=== PATIENT | male | born 1955 | race Caucasian/White ===

== ENCOUNTER 2023-06-19 05:23 | Emergency (ER) | payer MEDICARE, SELFPAY ==
--- NOTE | ~2023-06-19 | XR_ITS ---
EXAMINATION: XR knee RT 3V DATE: 06/19/2023 06:16 INDICATION: Right knee pain and swelling. TECHNIQUE: 3 views of right knee were obtained. COMPARISON: None. FINDINGS: Bone alignment is normal. No fracture. There is mild tricompartmental osteoarthritis. There is chondrocalcinosis of the menisci. There is a small knee joint effusion. IMPRESSION: 1. Mild right knee osteoarthritis. 2. Small right knee joint effusion. Reviewed, dictated and finalized at location E.
[2023-06-19 05:50] VITALS: BP 154/85; PULSE 80; RESP 15; TEMP 36.5; O2SAT 99
[2023-06-19 07:30] VITALS: BP 164/93; PULSE 83; RESP 18; O2SAT 96
[2023-06-19] MEDS: HYDROcodone/acetaminophen (*CRX) 5-325 MG TABLET 1 TAB PO (08:36)
[2023-06-19 08:37] VITALS: BP 153/87; PULSE 82; RESP 18; O2SAT 98
[2023-06-19 09:32] VITALS: BP 135/69; PULSE 73; RESP 18; O2SAT 98
--- NOTE | 2023-06-19 09:36 | ED.GENADULT ---
HPI - General Adult General Chief complaint: Extremity Injury, Lower Stated complaint: right knee pain Time Seen by Provider: 06/19/23 07:32 Related Data Allergies Allergy/AdvReac Type Severity Reaction Status Date / Time No Known Allergies Allergy Verified 06/19/23 07:19 Course Vital Signs Vital signs: Vital Signs Temperature 97.7 F 06/19/23 05:50 Pulse Rate 80 06/19/23 05:50 Respiratory Rate 15 06/19/23 05:50 Blood Pressure 154/85 H 06/19/23 05:50 Pulse Oximetry 99 06/19/23 05:50 Oxygen Delivery Room Air 06/19/23 05:50 Temperature 97.7 F 06/19/23 05:50 Pulse Rate 73 06/19/23 09:32 Respiratory Rate 18 06/19/23 09:32 Blood Pressure 135/69 06/19/23 09:32 Pulse Oximetry 98 06/19/23 09:32 Oxygen Delivery Room Air 06/19/23 05:50 Medical Decision Making Vital Signs Vital Signs: Vital Signs Temperature 97.7 F 06/19/23 05:50 Pulse Rate 80 06/19/23 05:50 Respiratory Rate 15 06/19/23 05:50 Blood Pressure 154/85 H 06/19/23 05:50 Pulse Oximetry 99 06/19/23 05:50 Oxygen Delivery Room Air 06/19/23 05:50 Temperature 97.7 F 06/19/23 05:50 Pulse Rate 73 06/19/23 09:32 Respiratory Rate 18 06/19/23 09:32 Blood Pressure 135/69 06/19/23 09:32 Pulse Oximetry 98 06/19/23 09:32 Oxygen Delivery Room Air 06/19/23 05:50 Discharge Plan Discharge Clinical Impression: Acute knee pain, Effusion of knee Patient Disposition: Home, Self-Care Condition: Stable Instructions: Osteoarthritis (ED), Swollen Knee Joint (ED) Additional Instructions: You have a painful swollen knee. Is felt to be related to overuse injury arthritis. Continue to rest, elevate the leg, and alternate between ice and heat. You can also wear compression sleeve. Take your home ibuprofen but you may also take some Tylenol with hydrocodone for breakthrough pain. You should return to the ER if your knee is red and hot, you have fever over 100.4 ?F, or you have additional concerns Prescriptions: New oxycodone-acetaminophen [Endocet] 5-325 mg tablet 1 tablet PO Q6H PRN (Reason: pain) Qty: 10 0RF Follow-up/Referrals: Иван,Rufino De La Paz MD [Primary Care Provider] - 1 Week Moshe Moses MD [Physician] - 1 Week
[2023-06-19 09:58] VITALS: BP 142/92; PULSE 73; RESP 18; O2SAT 98
== END 2023-06-19 10:00 | disposition home or self-care (01) ==
PROVIDERS: Emergency Provider Emergency Medicine; PCP Internal Medicine
DX: M25.561 Pain in right knee (principal); M25.461 Effusion, right knee
CPT/HCPCS: 73562; 99283; A9270

== ENCOUNTER 2025-01-09 10:12 | Emergency (ER) | payer MEDICARE, SELFPAY ==
--- NOTE | ~2025-01-09 | XR_ITS ---
XR knee RT 3V Ordering provider: Karen Nguyen APRN History: . pain and swelling post fall . Comparison: None. FINDINGS: BONES: No acute fracture or dislocation. JOINT SPACES: Normal. Chondrocalcinosis. SOFT TISSUES: Normal. IMPRESSION: No acute osseous abnormality right knee. Chondrocalcinosis. Reviewed, dictated and finalized at location A.
--- OUTSIDE RECORDS SUMMARY | 2025-01-09 10:16 | XMS_ITS | Encounter Summary ---
Author Organization [facility] Address [address] [facility] [place] [address] Care Team Providers Care Multimedia Project Manager Name Role Phone Rufino Oates MD Primary Care Provider [phone] Encounter Details Date Type Department Care Team (Late st Contact Info) Description 07/19/2021 Lab Requisition [facility] DermPath Lab [address] [place] [address] Ken Daniel MD [address] [facility] [place] [address] Social History Tobacco Use Types Packs/Day Years Used Date Smoking Tobacco: Never Assessed Sex and Gender Information Value Date Recorded Sex Assigned at Not on file Legal Sex Male 3:22 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 Gender Identity Not on file Sexual Orientation Not on file documented as of this encounter Plan of Treatment Not on file documented as of this encounter Procedures Procedure Name Priority Date/Time Associated Diagnosis Comments DERMATOPATHOLOGY Routine 07/18/2021 12:0 0 AM CIRCULAR SAWYER HELPER documented in this encounter Results * DERMATOPATHOLOGY (07/18/2021 12:00 AM CIRCULAR SAWYER HELPER) Case Report Dermatopathology Report Case: [id number] Authorizing Provider: Ken Daniel MD Collected: 07/18/2021 12:00 AM Ordering Location: [facility] DermPath Lab Received: 07/19/2021 06:29 AM Pathologist: Karuna Noguera MD Specimen: Skin, right chest 12:25 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 DERMATOPATHOLOGY LABORATORY Final Diagnosis Specimen A. SKIN, right chest: BASAL CELL CARCINOMA, NODULAR TYPE (C44.519) 12:25 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 DERMATOPATHOLOGY LABORATORY at 1225 CIRCULAR SAWYER HELPER Clinical History BCC vs SCC vs psoriasis. Path # [id number]. 12:25 PM [facility] DERMATOPATHOLOGY LABORATORY Gross Description Specimen A: Received is one formalin filled container labeled with the patient's name and designated right chest. The specimen consists of a shave biopsy measuring [id number]. Jar 0. 12:25 PM [facility] DERMATOPATHOLOGY LABORATORY Microscopic Description Specimen A. SKIN, right chest: Within the dermis there are aggregates of basaloid cells with a high nuclear to cytoplasmic ratio and peripheral palisading. 12:25 PM [facility] DERMATOPATHOLOGY LABORATORY Disclaimer An external and internal positive and negative controls are appropriate for the histochemical, immunohistochemical and immunofluorescence stain(s) in this case (if any), except where stated explicitly. The performance characteristics of the stain(s) cited in this report were developed and its performance characteristic determined by the Dermatopathology Laboratory at [facility], directed by Dr. Sujit Hill. These tests need not be, and therefore are not, approved by the [place] Food and Drug Administration. The tests are used for clinical purposes. Billing Codes Specimen Charges Stain Charges 62949 1 12:25 PM [facility] DERMATOPATHOLOGY LABORATORY Embedded Images 12:25 PM [facility] DERMATOPATHOLOGY LABORATORY Pathology/Cytolog y TISSUE SPECIMEN FROM SKIN / Unknown 07/18/2021 07/19/2021 6:29 AM CIRCULAR SAWYER HELPER us Ken Daniel MD LAB - PATHOLOGY/CYTOLOGY ORDER MINDY Final Result DERMATOPATHOLOGY LABORATORY [facility] - Department of Dermatology [address], [address] [phone] documented in this encounter Visit Diagnoses Not on filedocumented in this encounter Care Teams Multimedia Project Manager Relationship Specialty Start Date End Date Rufino Oates MD [address] [place] [address] [address] [place] [address] PCP - General 11/29/21 documented as of this encounter
--- OUTSIDE RECORDS SUMMARY | 2025-01-09 10:17 | XMS_ITS | Clinical Summary ---
Author Organization [facility] Address [address] [facility] [place] [address] Care Team Providers Care Warehouse Delivery Driver Name Role Phone Rufino Oates MD Primary Care Provider [phone] Allergies No known active allergies Medications quinapril (ACCUPRIL) 20 mg tablet Take 20 mg by mouth daily. Active rosuvastatin (CRESTOR) 20 mg tablet Take 20 mg by mouth daily at bedtime. Active escitalopram oxalate (LEXAPRO) 10 mg tablet Take 10 mg by mouth daily. Active amLODIPine (NORVASC) 10 mg tablet Take 10 mg by mouth daily. Active testosterone cypionate 200 mg/mL Kit Inject by intramuscular injection. 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 Family History Medical History Relation Name Comments Heart Disease Brother Heart Disease Father Diabetes Mother Heart Disease Mother Diabetes Sister Relation Name Status Comments Brother Father Mother Sister Alive Social History Tobacco Use Types Packs/Day Years Used Date Smoking Tobacco: Never Smokeless Tobacco: Never Alcohol Use Standard Drinks/Week Comments Yes 0 (1 standard drink = 0.6 oz pur e alcohol) Sex and Gender Information Value Date Recorded Sex Assigned at Not on file Legal Sex Male 8:55 AM 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 WORKER CLEANING MACHINERY Gender Identity Not on file Sexual Orientation Not on file Last Filed Vital Signs Vital Sign Reading Time Taken Comments Blood Pressure 141/93 10/23/2018 2:59 PM SANITATION WORKER CLEANING MACHINERY Pulse 78 10/23/2018 2:59 PM SANITATION WORKER CLEANING MACHINERY Temperature 36.7 C (98.1 F) 10/23/2018 2:59 PM SANITATION WORKER CLEANING MACHINERY Respiratory Rate - - Oxygen Saturation 96% 10/23/2018 2:59 PM SANITATION WORKER CLEANING MACHINERY Inhaled Oxygen Concentration - - Weight 85.3 kg (188 lb 1.6 oz) 10/23/2018 2:59 P M SANITATION WORKER CLEANING MACHINERY Height 175.3 cm (5' 9 ) 10/23/2018 2:59 PM SANITATION WORKER CLEANING MACHINERY Body Mass Index 27.78 10/23/2018 2:59 PM SANITATION WORKER CLEANING MACHINERY Plan of Treatment Health Maintenance Due Date Last Done Comments DTAP/TDAP/TD VACCINES (1 - Tdap) 1973 COLORECTAL SCREENING 1999 Colorectal Cancer Screening 1999 FIT-DNA Q 3 years 1999 FIT/FOBT Q 1 year 1999 Flex Sig/CT Colonography Q 5 years 1999 PNEUMOCOCCAL VACCINE 50+ YEARS (1 of 1 - PCV) 03/08/20 04 ZOSTER VACCINE (1 of 2) 2004 INFLUENZA VACCINE (#1) 2024 RSV VACCINE (60+ or ) (1 - 1-dose 75+ series) 2029 Insurance qualifyor/TRUE BLUE PPO Care Teams Warehouse Delivery Driver Relationship Specialty Start Date End Date Rufino Oates MD [facility] [address] [place] [address] PCP - General Internal Medicine 10/16/18
--- OUTSIDE RECORDS SUMMARY | 2025-01-09 10:17 | XMS_ITS | Clinical Summary ---
Author Organization [facility] [employer] Address [address] [place] [address] Care Team Providers Care Allergist Immunologist Name Role Phone Rufino Oates MD Primary Care Provider Source Comments [facility],non-owned Affiliates and Associated Physician Practices is amultiple site organization consisting of ambulatory clinics and hospital sitesin [place], [place], [place] and [place]. This disclosure is being madepursuant to the Care Everywhere program and may not contain all information available regarding this patient. 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 Gender Identity Not on file Sexual Orientation Not on file Plan of Treatment Health Maintenance Due Date Last Done Comments COLOGUARD (AGES 45-75) - COL ON CA SCREENING 1954 COLON MONITORING 1954 COLONOSCOPY - COLON CA SCREENING 1954 CT COLONOGRAPHY - COLON CA SCREENING 1954 Colorectal Cancer Screening 1954 FIT - COLON CA SCREENING 1954 FLEX SIG - COLON CA SCREENING 1954 LIPID TESTING 1954 HEPATITIS C SCREENING 03/03/1972 DTAP/TDAP/TD VACCINES (1 - Tdap) 1973 PNEUMOCOCCAL VACCINE 50+ (1 of 1 - PCV) 2004 ZOSTER VACCINE (1 of 2) 2004 COVID-19 VACCINE ( - 2023-2 5 season) 2024 DEPRESSION SCREENING 08/20/2024 INFLUENZA VACCINE (Season Ended) 2025 Respiratory Syncytial Virus (RSV) Vaccine Pt: or over 60 yrs (1 - 1-dose 75+ series) 2029 HEPATITIS B VACCINE Aged Out No longe r eligible based on patient's age to complete this topic HIB VACCINE Aged Out No longer eligi ble based on patient's age to complete this topic HPV VACCINE Aged Out No longer eligi ble based on patient's age to complete this topic MENINGOCOCCAL (Group B) VACC INE SHARED DECISION-MAKING Aged Out No longer eligibl e based on patient's age to complete this topic MENINGOCOCCAL GROUPS A/C/Y/W VACCINE Aged Out No longer eligible b ased on patient's age to complete this topic Insurance ANTH Care Teams Allergist Immunologist Relationship Specialty Start Date End Date Rufino Oates MD [address] [place] [address] [address] [place] [address] PCP - General 07/18/21
--- OUTSIDE RECORDS SUMMARY | 2025-01-09 10:17 | XMS_ITS | Clinical Summary ---
Author Organization [facility] Address [address] [place] [address] Care Team Providers Care Coloring Machine Operator Name Role Phone Unavailable Primary Care Provider Unavailabl e Immunizations Immunization Administration Dates Next Due Covid-19, Mrna, Lnp-s, PF, 1 00 mcg/0.5 mL Dose (Moderna) 06/24/2021 Social History Tobacco Use Types Packs/Day Years Used Date Smoking Tobacco: Never Assessed Sex and Gender Information Value Date Recorded Sex Assigned at Not on file Legal Sex Male 10:56 AM CDT Gender Identity Not on file Sexual Orientation Not on file Plan of Treatment Health Maintenance Due Date Last Done Comments Hepatitis C Virus (HCV) Screening 1954 TdaP Immunization 1954 Colonoscopy 1999 Colorectal Cancer Screening 1999 Cologuard 2004 Immunochemical Fecal Occult Blood 2004 Pneumococcal Immunization (5 0+ years) (1 of 1 - PCV) 2004 Zoster Immunization (1 of 2) 2004 PSA Discussion 2009 Influenza Immunization (#1) 2024 SARS-COV-2 Immunization (2 - season) 2024 06/24/2021 Respiratory Syncytial Virus (RSV) Immunization (Adult) (1 - 1-dose 75+ series) 2029 Hepatitis B Immunization Aged Out No longer eligible based on patient's age to complete this topic Meningococcal Immunization (ACWY) Aged Out No longer eligible based on patient's age to complete this topic Rotavirus Immunization Aged Out No lo nger eligible based on patient's age to complete this topic
--- OUTSIDE RECORDS SUMMARY | 2025-01-09 10:17 | XMS_ITS | Encounter Summary ---
Author Organization [facility] Address [address] [facility] [place] [address] Care Team Providers Care Export Documents Clerk Name Role Phone Rufino Oates MD Primary Care Provider [phone] Encounter Details Date Type Department Care Team (Late st Contact Info) Description 09/07/2021 Lab Requisition [facility] DermPath Lab [address] [facility] [place] [address] Ken Daniel MD [address] [facility] [place] [address] Social History Tobacco Use Types Packs/Day Years Used Date Smoking Tobacco: Never Assessed Sex and Gender Information Value Date Recorded Sex Assigned at Not on file Legal Sex Male 3:22 PM DEPARTMENT SALES MANAGER Gender Identity Not on file Sexual Orientation Not on file documented as of this encounter Plan of Treatment Not on file documented as of this encounter Procedures Procedure Name Priority Date/Time Associated Diagnosis Comments DERMATOPATHOLOGY Routine 09/07/2021 12:0 0 AM DEPARTMENT SALES MANAGER documented in this encounter Results * DERMATOPATHOLOGY (09/07/2021 12:00 AM DEPARTMENT SALES MANAGER) Case Report Dermatopathology Report Case: [id number] Authorizing Provider: Ken Daniel MD Collected: 09/07/2021 12:00 AM Ordering Location: [facility]erm[facility] Lab Received: 09/07/2021 04:18 PM Pathologist: Karuna Noguera MD Specimen: Skin, right chest 11:28 AM DEPARTMENT SALES MANAGER DERMATOPATHOLOGY LABORATORY Final Diagnosis Specimen A. SKIN, right chest: BASAL CELL CARCINOMA (C44.519) NOT PRESENT AT MARGIN DERMAL SCAR (L90.5) 2 11:28 AM [facility] DERMATOPATHOLOGY LABORATORY at 1128 DEPARTMENT SALES MANAGER Clinical History BX Proven. BCCA NOD. Please Check Margins. Path# [id number] 2 11:28 AM [facility] DERMATOPATHOLOGY LABORATORY Gross Description Specimen A: Received is one formalin filled container labeled with the patient's name and designated right chest. The specimen consists of a non-oriented ellipse of skin measuring [id number]. The epidermal surface is unremarkable. The margin is inked green. The 12 o'clock and 6 o'clock tips are submitted in cassette 1. The remainder of the ellipse is serially sectioned and submitted in cassette 2-3. Jar 0. 2 11:28 AM [facility] DERMATOPATHOLOGY LABORATORY Microscopic Description Specimen A. SKIN, right chest: Within the dermis there are aggregates of basaloid cells with a high nuclear to cytoplasmic ratio and peripheral palisading. This lesion is not present at the margin of the specimen. There are fibroblasts and collagen bundles oriented parallel to the skin surface with elongated blood vessels, some of which are oriented perpendicular to the skin surface. 2 11:28 AM [facility] DERMATOPATHOLOGY LABORATORY Disclaimer An external and internal positive and negative controls are appropriate for the histochemical, immunohistochemical and immunofluorescence stain(s) in this case (if any), except where stated explicitly. The performance characteristics of the stain(s) cited in this report were developed and its performance characteristic determined by the Dermatopathology Laboratory at [facility], directed by Dr. Sujit Hill. These tests need not be, and therefore are not, approved by the [place] Food and Drug Administration. The tests are used for clinical purposes. Billing Codes Specimen Charges Stain Charges 83147 1 2 11:28 AM [facility] DERMATOPATHOLOGY LABORATORY Embedded Images 2 11:28 AM [facility] DERMATOPATHOLOGY LABORATORY Pathology/Cytolog y TISSUE SPECIMEN FROM SKIN / Unknown 09/07/2021 09/07/2021 4:18 PM DEPARTMENT SALES MANAGER us Ken Daniel MD LAB - PATHOLOGY/CYTOLOGY ORDER MINDY Final Result DERMATOPATHOLOGY LABORATORY [facility] - Department of Dermatology [facility] [address] [place] [address], [address] [phone] documented in this encounter Visit Diagnoses Not on filedocumented in this encounter Care Teams Export Documents Clerk Relationship Specialty Start Date End Date Rufino Oates MD [facility] [address] [place] [id number] PCP - General 07/18/21 documented as of this encounter
--- OUTSIDE RECORDS SUMMARY | 2025-01-09 10:17 | XMS_ITS | Data Portability ---
Author Organization [place] [facility], Main Office Address [address] [place] [address] Assessment No assessment recorded. Plan of Treatment Reminders Order Date Submit Date Provider Last Modified By Organization Details Last Modified Time Details Appointments None recorded. Lab HbA1c (hemoglob in A1c), blood 025 025 [facility], [address], [place], [address], 5 17:41:14 lipid panel, serum 025 025 [email or web address] [facility], [address], [place], [address], 5 17:41:13 CMP, serum or plasma 025 025 [id number] [facility], [address], [place], [address], 5 17:41:14 vitamin B12 + folate, serum or blood 025 025 [email or web address] [facility], [address], [place], [address], 5 17:41:14 lipid panel, serum 024 024 [facility], [address], [place], [address], 4 09:40:58 CMP, serum or plasma 024 024 [id number] [facility], [address], [place], [address], 4 09:40:58 TSH, serum or plasma 024 024 [id number] [facility], [address] , [place], [address], 4 09:40:59 T4, free, serum 024 024 [facility], [address], [place], [address], 4 09:40:59 HbA1c (hemoglob in A1c), blood 024 024 [email or web address] [facility], [address] , [place], [address], 4 09:40:59 microalbu min/creat inine, mass ratio, urine 024 024 [id number] [facility], [address] , [place], [address], 4 09:40:59 CBC w/ auto diff 024 024 [facility], [address] , [place], [address], 4 09:40:59 PSA, serum or plasma 024 024 [facility], [address] , [place], [address], 4 09:40:59 lipid panel, serum 023 023 DICK [facility], [address] , [place], [address], 3 02:09:56 CMP, serum or plasma 023 023 DICK [facility], [address] , [place], [address], 3 02:09:58 testoster one, free + total, serum 023 023 [facility], [address], [place], [address], 3 02:09:57 Referral None recorded. Procedures None recorded. Surgeries None recorded. Imaging None recorded. Medication Orders Proscar 5 mg tablet 024 024 [email or web address] [facility], [facility], [place], [address], 5 11:21:20 Patient TargetsNo targets recorded. Patient Instructions Encounter Date Encounter Id Patient Instructions Last Modified By Organization Details Last Modified Time 04/04/2023 [id number] Follow-up hypertension-hyperli pidemia - type 2 diabetes -testicular hypofunction all clinically stable. Has had recent blood work performed cholesterol was 168 HDL 57 LDL was 78. PSA was fine at 0.18. Hemoglobin A1c 6.1. Overall is doing well. Will continue on current Rx will check a lipid, CMP and testosterone level. Continue on current Rx and follow-up in six months Not available 04/04/2023 15:01:30 11/01/2023 [id number] Hypertension, hyperlipidemia, type 2 diabetes, pseudogout, GERD and BPH. Check blood work consisting of CBC, CMP, lipid, thyroid, PSA. Continue on current Rx follow-up in six months.. Portions of the record may have been created with voice recognition software. Occasional wrong-word or s ound-a-like substitutions may have occurred due to the inherent limitations of voice recognition software. Read the chart carefully and recognize, using context, where substitutions have occurred. [email or web address] Not available 11/01/2023 12:18:38 05/01/2024 [id number] dementia rating scale-2* [email or web address] Not available 05/01/2024 17:50:09 alcohol misuse* [email or web address] Not available 05/01/2024 17:50:10 depression screening* [email or web address] Not available 05/01/2024 17:50:10 multi-dimensiona l health assessment questionnaire* [email or web address] Not available 05/01/2024 17:50:10 Personalized a lt Plan and Screening Recommendations Advance Directives - Do you have one? Yes Advance Directives - Do we have your advance directive on file in your health record? No, please bring in a copy at your earliest convenience Primary Prevention/Intervent ion (prevents or decreases the chance of common diseases from occurring) Smoking Risk: Non Smoker Alcohol Misuse Screening: Negative Weight: Appropriate [place] ht continue your current weight loss efforts try to lose 5% of your body weight try to lose 10% of your body weight Physical activity: Need more exercise/physical activity Nutrition: Good Average Fall Risk (screened today): Low Vaccines Pneumococcal: Influenza: Your next one in the fall of this year Chronic Disease Risks Stroke: Low Risk Intermediate Risk I have no recommendations Acti ve diagnosis, Continue current treatment plan Heart Attack: Low risk Intermediate Risk I have no recommendations Acti ve diagnosis, Continue current treatment plan Clogging of the Arteries: Low risk Intermediate Risk I have no recommendations Acti ve diagnosis, Continue current treatment plan Diabetes: Low Risk Intermediate Risk Active diagnosis, Continue current treatment plan Secondary Prevention/Intervent ion (detects treatable diseases before they may cause symptoms, disability, or ) Prostate Cancer Screening: Colon Cancer Screening: Colonoscopy Date Screening Last Performed: _2017 Eye Disease Screening: Dementia Risk: Low I have no recommendations Depression Screening: Negative Active diagnosis, Continue current treatment plan Not available 05/01/2024 12:18:25 Medicare risk evaluation overall doing fine. Follow up for HTN,Cholesterol, DM, BPH and low T. Will continue on current Rx. Check blood work and follow up in six months Next Appointment: 6 Months Approximate Date: 08/29/2024 Portions of the record may have been created with voice recognition software. Occasional wrong-word or s ound-a-like substitutions may have occurred due to the inherent limitations of voice recognition software. Read the chart carefully and recognize, using context, where substitutions have occurred. [email or web address] Not available 05/01/2024 17:49:48 12/02/2024 [id number] Follow-up for hypertension, hyperlipidemia, type 2 diabetes, psoriasis as well as thrombocytopenic disorder. Will check a hemoglobin A1c. , lipid, CBC and B12 level. Continue on current Rx. May consider giving some B12 injections to see if there is any improvement in his values. Follow Up: 6 Months Approximate Date: 05/31/2025 Portions of record are template driven. When necessary additional context will be provided. Additionally some portions have been created with voice recognition software. Occasional wrong-word or s ound-a-like substitutions may have occurred due to the inherent limitations of voice recognition software. Read the chart carefully and recognize, using context, where substitutions may have occurred. Created: Rufino Oates M.D. 12.02.2024 10:37 AM [email or web address] Not available 12/02/2024 11:37:43 Reason for Referral None Reported. Results Created Date Observation Date Name Description Value Unit Range Abnormal Flag Note LastModifiedBy Organization Detail LastModifiedTime 04/25/2004/30/2023 LIPID PANEL , STAND GWEN cholesterol, total 179 mg/dL <200 normal Not Available [facility] [address], [address], 04/30/2023 02:09:56 04/25/2004/30/2023 LIPID PANEL , STAND GWEN HDL cholesterol 59 mg/dL > or = 40 normal Not Available [facility] [address] [address] [place], [address], 04/30/2023 02:09:56 04/25/2004/30/2023 LIPID PANEL , STAND GWEN triglyceride s 201 mg/dL <150 high If a non-f astin g speci men was colle cted, consi denisha repea t trigl yceri de testi ng on a fasti ng speci men if clini arsenio indic ated. Hill merrill et al. J. of Clin. Lipid ol. 2015; 9:129 -169. Not Available [facility] [address] [place], [address], 04/30/2023 02:09:56 04/25/2004/30/2023 LIPID PANEL , STAND GWEN LDL-choleste rol 90 mg/dL _(michell c) normal Refer ence range : <100 Denise able range <100 mg/dL for prima ry preve ntion ; <70 mg/dL for patie nts with CHD or diabe tic patie nts with > or = 2 CHD risk facto rs. LDL-C is now calcu lated using the Teri n-Hop kins millau kobijerson n, which is a valid ated novel chelsey peace than the Fried cori rayne ion in the estim ation of LDL-C . Teri restrepo SS et al. TAVIA. 2013; 310(1 9): 2061- 2068 (http ://ed ucati on.Qu jadielLiveLeaf. com/f aq/FA Q164) Not Available [address] [address] [place], [address], 04/30/2023 02:09:56 04/25/2004/30/2023 LIPID PANEL , STAND GWEN chol/HDLC ratio 3.0 (calc ) <5.0 normal Not Available [address], [address], 04/30/2023 02:09:56 04/25/2004/30/2023 LIPID PANEL , STAND GWEN non HDL cholesterol 120 mg/dL _(michell c) <130 normal For patie nts with diabe alysa plus 1 major ASCVD risk facto r, treat ing to a non-H DL-C goal of <100 mg/dL (LDL- C of <70 mg/dL ) is consi rodrigod a ivan alcala optio n. Not Available [address], [address], 04/30/2023 02:09:56 04/25/2004/30/2023 TESTO STERO NE, FREE, BIOAV AILAB LE AND TOTAL , MS albumin 4.9 g/dL 3.6-5. 1 Not Available [address] [address] [place], [address], 04/30/2023 02:09:57 04/25/2004/30/2023 TESTO STERO NE, FREE, BIOAV AILAB LE AND TOTAL , MS sex hormone binding globulin 22.0 nmol/ L 22-77 Not Available [address] [place], [address], 04/30/2023 02:09:57 04/25/2004/30/2023 TESTO STERO NE, FREE, BIOAV AILAB LE AND TOTAL , MS testosterone , free 42.5 pg/mL 46.0-2 24.0 low Not Available [address] [address] [place], [address], 04/30/2023 02:09:57 04/25/2004/30/2023 TESTO STERO NE, FREE, BIOAV AILAB LE AND TOTAL , MS testosterone ,bioavailabl e 94.9 NG/dL 110.0- 575.0 low Not Available [facility] [address] [place], [address], 04/30/2023 02:09:57 04/25/2004/30/2023 TESTO STERO NE, FREE, BIOAV AILAB LE AND TOTAL , MS testosterone , total, MS 258 NG/dL 250-11 00 Men with clini arsenio signi fican t hypog onada l sympt oms and testo stero ne value s repea tedly in the range of the 200-3 00 ng/dL or less, may benef it from testo stero ne treat ment after adequ ate risk and benef its couns eling . For addit ional infor jia daugherty e refer to https ://ed ucati on.qu lani medinadigedu. com/f aq/FA Q165 (This link is being provi ded for infor efren nal/e ducat ional purpo ses only. ) (Note ) This test was devel oped and its keon tical perfo rmanc e hien cteri stics have been deter mined by [employer] [employer]. It has not been clear ed or appro ishan by the FDA. This assay has been valid ated pursu ant to the CLIA regul ation s and is used for clini michell purpo ses. MDF med fusio n [address] [facility] [address] [facility] [address] [phone] Osito clark MD Not Available [address] [place], [address], 04/30/2023 02:09:57 04/25/20 23 04/30/2023 COMPR EHENS VIN METAB OLIC PANEL glucose 149 mg/dL 65-99 high => [facility] ED: Chung e in test resul t(s) Fasti ng refer ence inter marisol For someo ne witho ut known diabe alysa, a gluco se value >125 mg/dL indic ates that they may have diabe alysa and this shoul d be confi rmed with a follo w-up test. PLEAS E DISRE SELENA PREVI OUSLY REPOR VIKAS INFOR MATIO N BELOW : (The infor matio n below was origi vincent repor vikas on 04/27 at 1:23 PM) GLUCO SE TNP/3 17 TEST NOT PERFO RMED Dupli caleb test. Not Available [address] [address] [place], [address], 04/30/2023 02:09:58 04/25/20 23 04/30/2023 COMPR EHENS VIN METAB OLIC PANEL urea nitrogen (BUN) 24 mg/dL 7-25 normal => [facility]H ED: Chung e in test resul t(s) Not Available [address], [address], 04/30/2023 02:09:58 04/25/20 23 04/30/2023 COMPR EHENS VIN METAB OLIC PANEL creatinine 0.89 mg/dL 0.70-1 .35 normal => [facility]H ED: Chung e in test resul t(s) Not Available [address], [address], 04/30/2023 02:09:58 04/25/20 23 04/30/2023 COMPR EHENS VIN METAB OLIC PANEL eGFR 93 mL/mi n/1.7 3m2 > or = 60 normal => ISH ED: Chung e in test resul t(s) Not Available [address] [address] [place], [address], 04/30/2023 02:09:58 04/25/2004/30/2023 COMPR EHENS VIN METAB OLIC PANEL BUN/creatini ne ratio SEE NOTE: (calc ) 6-22 => ISH ED: Chung e in test resul t(s) Not Repor vikas: BUN and Creat inine are withi n refer ence range . Not Available [address], [address], 04/30/2023 02:09:58 04/25/2004/30/2023 COMPR EHENS VIN METAB OLIC PANEL sodium 140 mmol/ L 135-14 6 normal => ISH ED: Chung e in test resul t(s) Not Available [address], [address], 04/30/2023 02:09:58 04/25/20 23 04/30/2023 COMPR EHENS VIN METAB OLIC PANEL potassium 4.3 mmol/ L 3.5-5. 3 normal Not Available [address], [address], 04/30/2023 02:09:58 04/25/20 23 04/30/2023 COMPR EHENS VIN METAB OLIC PANEL chloride 104 mmol/ L 98-110 normal => ISH ED: Chung e in test resul t(s) Not Available [address] [address] [place], [address], 04/30/2023 02:09:58 04/25/20 23 04/30/2023 COMPR EHENS VIN METAB OLIC PANEL carbon dioxide 22 mmol/ L 20-32 normal => ISH ED: Chung e in test resul t(s) Not Available [address] [address] [place], [address], 04/30/2023 02:09:58 04/25/20 23 04/30/2023 COMPR EHENS VIN METAB OLIC PANEL calcium 9.9 mg/dL 8.6-10 .3 normal => ISH ED: Chung e in test resul t(s) Not Available [address], [address], 04/30/2023 02:09:58 04/25/2004/30/2023 COMPR EHENS VIN METAB OLIC PANEL protein, total 7.3 g/dL 6.1-8. 1 normal Not Available [address], [address], 04/30/2023 02:09:58 04/25/2004/30/2023 COMPR EHENS VIN METAB OLIC PANEL albumin 5.0 g/dL 3.6-5. 1 normal => ISH ED: Chung e in test resul t(s) Not Available [address], [address], 04/30/2023 02:09:58 04/25/20 23 04/30/2023 COMPR EHENS VIN METAB OLIC PANEL globulin 2.3 g/dL_ (calc ) 1.9-3. 7 normal Not Available [address], [address], 04/30/2023 02:09:58 04/25/2004/30/2023 COMPR EHENS VIN METAB OLIC PANEL albumin/glob ulin ratio 2.2 (calc ) 1.0-2. 5 normal Not Available [address], [address], 04/30/2023 02:09:58 04/25/2004/30/2023 COMPR EHENS VIN METAB OLIC PANEL bilirubin, total 0.3 mg/dL 0.2-1. 2 normal => ISH ED: Chung e in test resul t(s) Not Available [address], [address], 04/30/2023 02:09:58 04/25/20 23 04/30/2023 COMPR EHENS VIN METAB OLIC PANEL alkaline phosphatase 74 U/L 35-144 normal => ISH ED: Chung e in test resul t(s) Not Available [address], [address], 04/30/2023 02:09:58 04/25/20 23 04/30/2023 COMPR EHENS VIN METAB OLIC PANEL AST 28 U/L 10-35 normal => ISH ED: Chung e in test resul t(s) Not Available [address], [address], 04/30/2023 02:09:58 04/25/20 23 04/30/2023 COMPR EHENS VIN METAB OLIC PANEL ALT 33 U/L 9-46 normal => ISH ED: Chung e in test resul t(s) Not Available [address], [address], 04/30/2023 02:09:58 12/04/19 24 12/09/2023 LIPID PANEL , STAND GWEN cholesterol, total 174 mg/dL <200 normal Not Available [address], [address], 12/09/2023 09:21:36 12/04/19 24 12/09/2023 LIPID PANEL , STAND GWEN HDL cholesterol 51 mg/dL > or = 40 normal Not Available [address], [address], 12/09/2023 09:21:36 12/04/19 24 12/09/2023 LIPID PANEL , STAND GWEN triglyceride s 289 mg/dL <150 high If a non-f astin g speci men was colle cted, consi denisha repea t trigl yceri de testi ng on a fasti ng speci men if clini arsenio indic ated. Hill merrill et al. J. of Clin. Lipid ol. 2015; 9:129 -169. Not Available [facility] [address] [place], [address], 12/09/2023 09:21:36 12/04/19 24 12/09/2023 LIPID PANEL , STAND GWEN LDL-choleste rol 85 mg/dL _(michell c) normal Refer ence range : <100 Denise able range <100 mg/dL for prima ry preve ntion ; <70 mg/dL for patie nts with CHD or diabe tic patie nts with > or = 2 CHD risk facto rs. LDL-C is now calcu lated using the Teri n-Hop kins millau catalino n, which is a valid ated novel chelsey marshall r accur acy than the Fried cori equat ion in the estim ation of LDL-C . Teri restrepo SS et al. TAVIA. 2013; 310(1 9): 2061- 2068 (http ://ed ucati on.Qu jadielLiveLeaf. com/f aq/FA Q164) Not Available [facility] [address], [place], [address], 12/09/2023 09:21:36 12/04/19 24 12/09/2023 LIPID PANEL , STAND GWEN chol/HDLC ratio 3.4 (calc ) <5.0 normal Not Available [facility] [address], [place], [address], 12/09/2023 09:21:36 12/04/19 24 12/09/2023 LIPID PANEL , STAND GWEN non HDL cholesterol 123 mg/dL _(michell c) <130 normal For patie nts with diabe alysa plus 1 major ASCVD risk facto r, treat ing to a non-H DL-C goal of <100 mg/dL (LDL- C of <70 mg/dL ) is consi rodrigod a thera peutdebbie c optio n. Not Available [facility] [address] [address], [place], [address], 12/09/2023 09:21:36 12/04/19 24 12/09/2023 ALBUM IN, RANDO M URINE W/CRE ATINI NE creatinine, random urine 158 mg/dL 20-320 normal Not Available [address] [address] [place], [address], 12/09/2023 09:21:37 12/04/19 24 12/09/2023 ALBUM IN, RANDO M URINE W/CRE ATINI NE albumin, urine 4.2 mg/dL see note: normal Refer ence Range : Refer ence Range Not estab lishe d Not Available [address] [address] , [place], [address], 12/09/2023 09:21:37 12/04/19 24 12/09/2023 ALBUM IN, RANDO M URINE W/CRE ATINI NE albumin/crea tinine ratio, random urine 27 mg/g_ creat <30 normal The ADA defin es abnor malit ies in album in excre tion as follo ws: Album inuri a Categ ory Resul t (mg/g creat inine ) Gina l to Mildl y incre ased <30 Moder ately incre ased 30-29 9 Sever osvaldo incre ased > OR = 300 The ADA recom mends that at least two of three speci mens colle cted withi n a 3-6 month perio d be abnor mal befor e consi morgan g a patie nt to be withi n a diagn ostic categ ory. Not Available [facility] [address] , [place], [address], 12/09/2023 09:21:37 12/04/19 24 12/09/2023 COMPR EHENS VIN METAB OLIC PANEL , PLASM A glucose 194 mg/dL 65-99 high Fasti ng refer ence inter marisol For someo ne witho ut known diabe alysa, a gluco se value >125 mg/dL indic ates that they may have diabe alysa and this shoul d be confi rmed with a follo w-up test. Not Available [address], [address], 12/09/2023 09:21:38 12/04/19 24 12/09/2023 COMPR EHENS VIN METAB OLIC PANEL , PLASM A urea nitrogen (BUN) 21 mg/dL 7-25 normal Not Available [address], [address], 12/09/2023 09:21:38 12/04/19 24 12/09/2023 COMPR EHENS VIN METAB OLIC PANEL , PLASM A creatinine 0.77 mg/dL 0.70-1 .35 normal Not Available [address], [address], 12/09/2023 09:21:38 12/04/19 24 12/09/2023 COMPR EHENS VIN METAB OLIC PANEL , PLASM A eGFR 97 mL/mi n/1.7 3m2 > or = 60 normal Not Available [address], [address], 12/09/2023 09:21:38 12/04/19 24 12/09/2023 COMPR EHENS VIN METAB OLIC PANEL , PLASM A BUN/creatini ne ratio SEE NOTE: (calc ) 6-22 Not Repor vikas: BUN and Creat inine are withi n refer ence range . Not Available [address], [address], 12/09/2023 09:21:38 12/04/19 24 12/09/2023 COMPR EHENS VIN METAB OLIC PANEL , PLASM A sodium 143 mmol/ L 135-14 6 normal Not Available [address], [address], 12/09/2023 09:21:38 12/04/19 24 12/09/2023 COMPR EHENS VIN METAB OLIC PANEL , PLASM A potassium 4.0 mmol/ L 3.4-4. 8 normal Not Available [address], [address], 12/09/2023 09:21:38 12/04/19 24 12/09/2023 COMPR EHENS VIN METAB OLIC PANEL , PLASM A chloride 106 mmol/ L 98-110 normal Not Available [address], [address], 12/09/2023 09:21:38 12/04/19 24 12/09/2023 COMPR EHENS VIN METAB OLIC PANEL , PLASM A carbon dioxide 21 mmol/ L 20-32 normal Not Available [address], [address], 12/09/2023 09:21:38 12/04/19 24 12/09/2023 COMPR EHENS VIN METAB OLIC PANEL , PLASM A calcium 9.8 mg/dL 8.6-10 .3 normal Not Available [address], [address], 12/09/2023 09:21:38 12/04/19 24 12/09/2023 COMPR EHENS VIN METAB OLIC PANEL , PLASM A protein, total 6.7 g/dL 6.4-8. 4 normal Not Available [address], [address], 12/09/2023 09:21:38 12/04/19 24 12/09/2023 COMPR EHENS VIN METAB OLIC PANEL , PLASM A albumin 4.5 g/dL 3.6-5. 1 normal Not Available [address], [address], 12/09/2023 09:21:38 12/04/19 24 12/09/2023 COMPR EHENS VIN METAB OLIC PANEL , PLASM A globulin 2.2 g/dL_ (calc ) 2.2-4. 0 normal Not Available [address], [address], 12/09/2023 09:21:38 12/04/19 24 12/09/2023 COMPR EHENS VIN METAB OLIC PANEL , PLASM A albumin/glob ulin ratio 2.0 (calc ) 0.9-2. 3 normal Not Available [address], [address], 12/09/2023 09:21:38 12/04/19 24 12/09/2023 COMPR EHENS VIN METAB OLIC PANEL , PLASM A bilirubin, total 0.3 mg/dL 0.2-1. 2 normal Not Available [address], [address], 12/09/2023 09:21:38 12/04/19 24 12/09/2023 COMPR EHENS VIN METAB OLIC PANEL , PLASM A alkaline phosphatase 67 U/L 35-144 normal Not Available [facility] [employer] [address], [address], 12/09/2023 09:21:38 12/04/19 24 12/09/2023 COMPR EHENS VIN METAB OLIC PANEL , PLASM A AST 38 U/L 10-35 high Not Available [address], [address], 12/09/2023 09:21:38 12/04/19 24 12/09/2023 COMPR EHENS VIN METAB OLIC PANEL , PLASM A ALT 46 U/L 9-46 normal Not Available [address], [address], 12/09/2023 09:21:38 12/04/19 24 12/09/2023 PSA, POST- PROST ATECT ALEXANDRO PSA, icma 0.23 NG/mL REFER ENCE RANGE S for PSA: LESS THAN 0.10 ng/mL AFTER RADIC AL PROST ATECT ALEXANDRO. 4.0 ng/mL OR LESS IN HEALT HY MALES WITHO UT PROST ATECT ALEXANDRO. PSA value s obtai jeni with diffe rent assay metho ds or kits canno t be used inter [facility] . This test was perfo rmed using the Beck an Coult er DxI metho d. PSA, ICMA is not to be used as a diagn ostic proce dure witho ut confi rmati on of the diagn osis by anoth er estab lishe d produ ct or proce dure. The lower limit of accur ate quant ifica tion for this assay is 0.02 ng/mL . PSA value s less than 0.02 ng/mL canno t be accur ately measu red and will be repor vikas as less than 0.02 ng/mL . Speci mens with PSA level s below the lower limit of accur ate quant ifica tion shoul d be consi dered as negat vin. In patie nts with a negat vin resul t for post prost atect alexandro PSA, seria l monit oring of PSA level s at regul ar inter vals, along with physi michell exami natio ns and other tests , may help to detec t recur rent prost ate cance r. Not Available [facility] [address] [address] [place], [address], 12/09/2023 09:21:39 12/04/19 24 12/09/2023 CBC (INCL UDES DIFF/ PLT) white blood cell count 4.0 thous and/u L 3.8-10 .8 normal Not Available [facility] [address] [place], [address], 12/09/2023 09:21:40 12/04/19 24 12/09/2023 CBC (INCL UDES DIFF/ PLT) red blood cell count 4.03 marta on/uL 4.20-5 .80 low Not Available [facility] [address], [address], 12/09/2023 09:21:40 12/04/19 24 12/09/2023 CBC (INCL UDES DIFF/ PLT) hemoglobin 12.7 g/dL 13.2-1 7.1 low Not Available [facility] - [address], [address], 12/09/2023 09:21:40 12/04/19 24 12/09/2023 CBC (INCL UDES DIFF/ PLT) hematocrit 37.7 % 38.5-5 0.0 low Not Available [facility] [address], [address], 12/09/2023 09:21:40 12/04/19 24 12/09/2023 CBC (INCL UDES DIFF/ PLT) MCV 93.5 fL 80.0-1 00.0 normal Not Available [facility] [address], [address], 12/09/2023 09:21:40 12/04/19 24 12/09/2023 CBC (INCL UDES DIFF/ PLT) MCH 31.5 pg 27.0-3 3.0 normal Not Available [facility] [address], [address], 12/09/2023 09:21:40 12/04/19 24 12/09/2023 CBC (INCL UDES DIFF/ PLT) MCHC 33.7 g/dL 32.0-3 6.0 normal Not Available [facility] [address], [address], 12/09/2023 09:21:40 12/04/19 24 12/09/2023 CBC (INCL UDES DIFF/ PLT) RDW 13.3 % 11.0-1 5.0 normal Not Available [facility] [address], [address], 12/09/2023 09:21:40 12/04/19 24 12/09/2023 CBC (INCL UDES DIFF/ PLT) platelet count 73 thous and/u L 140-40 0 low Not Available [facility] [address], [address], 12/09/2023 09:21:40 12/04/19 24 12/09/2023 CBC (INCL UDES DIFF/ PLT) MPV 12.6 fL 7.5-12 .5 high Not Available [address], [address], 12/09/2023 09:21:40 12/04/19 24 12/09/2023 CBC (INCL UDES DIFF/ PLT) absolute neutrophils 2320 cells /uL 1500-7 800 normal Not Available [address], [address], 12/09/2023 09:21:40 12/04/19 24 12/09/2023 CBC (INCL UDES DIFF/ PLT) absolute lymphocytes 920 cells /uL 850-39 00 normal Not Available [address], [address], 12/09/2023 09:21:40 12/04/19 24 12/09/2023 CBC (INCL UDES DIFF/ PLT) absolute monocytes 400 cells /uL 200-95 0 normal Not Available [address], [address], 12/09/2023 09:21:40 12/04/19 24 12/09/2023 CBC (INCL UDES DIFF/ PLT) absolute eosinophils 360 cells /uL 15-500 normal Not Available [address], [address], 12/09/2023 09:21:40 12/04/19 24 12/09/2023 CBC (INCL UDES DIFF/ PLT) absolute basophils 0 cells /uL 0-200 normal Not Available [address], [address], 12/09/2023 09:21:40 12/04/19 24 12/09/2023 CBC (INCL UDES DIFF/ PLT) neutrophils 58 % normal Not Available [address], [address], 12/09/2023 09:21:40 12/04/19 24 12/09/2023 CBC (INCL UDES DIFF/ PLT) lymphocytes 23 % normal Not Available [address], [address], 12/09/2023 09:21:40 12/04/19 24 12/09/2023 CBC (INCL UDES DIFF/ PLT) monocytes 10 % normal Not Available [address], [address], 12/09/2023 09:21:40 12/04/19 24 12/09/2023 CBC (INCL UDES DIFF/ PLT) eosinophils 9 % normal Not Available [address], [address], 12/09/2023 09:21:40 12/04/19 24 12/09/2023 CBC (INCL UDES DIFF/ PLT) basophils 0 % normal Not Available [address], [address], 12/09/2023 09:21:40 12/04/19 24 12/09/2023 CBC (INCL UDES DIFF/ PLT) comment(s) The smear has been manua lly revie wed and the manua l diffe renti al has been repor vikas. Revie w of the perip heral smear revea ls decre ased numbe rs of plate lets. Not Available [address], [address], 12/09/2023 09:21:40 12/04/19 24 12/09/2023 T4, FREE T4, free 1.0 NG/dL 0.8-1. 8 normal Not Available [address], [address], 12/09/2023 09:21:41 12/04/19 24 12/09/2023 TSH TSH 2.57 mIU/L 0.40-4 .50 normal Not Available [facility] [place] [address] [place], [address], 12/09/2023 09:21:42 12/04/19 24 12/09/2023 HEMOG LOBIN A1C hemoglobin A1C 7.7 %_of_ total _HGB <5.7 high For someo ne witho ut known diabe alysa, a hemog lobin A1c value of 6.5% or great er indic ates that they may have diabe alysa and this shoul d be confi rmed with a follo w-up test. For someo ne with known diabe alysa, a value <7% indic ates that their diabe alysa is well contr olled and a value great er than or equal to 7% indic ates subop timal contr ol. A1c targe ts shoul d be indiv idual ized based on durat ion of diabe alysa, age, comor bid condi tions , and other consi derat ions. Curre ntly, no conse nsus exist s regar ding use of hemog lobin A1c for diagn osis of diabe alysa for child bry. This test was perfo rmed on the [facility] sarah c503 platf orm. Effec tive , a chung e in test platf orms from the [facility] to the Marcel[facility] sarah c503 may have shift ed HbA1c resul ts leighton red to histo rical resul ts. Based on labor atory valid ation testi ng condu cted at [employer] , the [facility] platf orm relat vin to the [facility] [employer] platf orm had an avera ge incre ase in HbA1c value of < or = 0.3%. This diffe rence is withi n accep vikas varia bilit y estab lishe d by the [facility] [facility] [employer] hemog lobin Stand ardiz ation Progr am. Note that not all indiv idual s will have had a shift in their resul ts and direc t leighton rison s betwe en histo rical and curre nt resul ts for testi ng condu cted on diffe rent platf orms is not recom ricardo d. Not Available [employer] [facility] [address] [place] [address], [address], 12/09/2023 09:21:43 12/14/19 24 12/15/2023 IRON, TIBC AND MARK TIN PANEL iron, total 124 mcg/d L 50-180 normal Not Available [address], [address], 12/15/2023 08:56:05 12/14/19 24 12/15/2023 IRON, TIBC AND MARK TIN PANEL iron binding capacity 305 mcg/d L_(ca lc) 250-42 5 normal Not Available [address], [address], 12/15/2023 08:56:05 12/14/19 24 12/15/2023 IRON, TIBC AND MARK TIN PANEL % saturation 41 %_(ca lc) 20-48 normal Not Available [address], [address], 12/15/2023 08:56:05 12/14/19 24 12/15/2023 IRON, TIBC AND MARK TIN PANEL ferritin 534 NG/mL 24-380 high Not Available [address], [address], 12/15/2023 08:56:05 12/14/1912/15/2023 FOLAT E, SERUM folate, serum 18.8 NG/mL normal Refer ence Range Low: <3.4 Borde rline : 3.4-5 .4 Gina l: >5.4 Not Available [address], [address], 12/15/2023 08:56:07 12/14/19 24 12/15/2023 VITAM IN B12 vitamin B12 346 pg/mL 200-11 00 normal Pleas e Note: Altho ugh the refer ence range for vitam in B12 is 200-1 100 pg/mL , it has been repor vikas that betwe en 5 and 10% of patie nts with value s betwe en 200 and 400 pg/mL may exper ience neuro psych iatri c and hemat ologi c abnor malit ies due to occul t B12 defic iency ; less than 1% of patie nts with value s above 400 pg/mL will have sympt oms. Not Available [employer] [address], [address], 12/15/2023 08:56:08 06/11/2006/12/2024 LIPID PANEL (REFL ) cholesterol, total 153 mg/dL <200 normal Not Available [facility] [address], [address], 06/12/2024 09:30:19 06/11/2006/12/2024 LIPID PANEL (REFL ) HDL cholesterol 56 mg/dL > or = 40 normal Not Available [employer] [address], [address], 06/12/2024 09:30:19 06/11/2006/12/2024 LIPID PANEL (REFL ) triglyceride s 188 mg/dL <150 high Not Available [facility] [address], [address], 06/12/2024 09:30:19 06/11/2006/12/2024 LIPID PANEL (REFL ) LDL-choleste rol 71 mg/dL _(michell c) normal Refer ence range : <100 Denise able range <100 mg/dL for prima ry preve ntion ; <70 mg/dL for patie nts with CHD or diabe tic patie nts with > or = 2 CHD risk facto rs. LDL-C is now calcu lated using the Teri n-Hop kins fredrick bae n, which is a valid ated novel chelsey marshlal r accur acy than the Fried cori equat ion in the estim ation of LDL-C . Teri restrepo SS et al. TAVIA. 2013; 310(1 3): 2061- 2068 (http ://ed ucati on.Qu estDi agnos tics. com/f aq/FA Q164) Not Available [address] [address] [place], [address], 06/12/2024 09:30:19 06/11/2006/12/2024 LIPID PANEL (REFL ) chol/HDLC ratio 2.7 (calc ) <5.0 normal Not Available [address] [address] [place], [address], 06/12/2024 09:30:19 06/11/2006/12/2024 LIPID PANEL (REFL ) non HDL cholesterol 97 mg/dL _(michell c) <130 normal For patie nts with diabe alysa plus 1 major ASCVD risk facto r, treat ing to a non-H DL-C goal of <100 mg/dL (LDL- C of <70 mg/dL ) is consi dered a thera peuti c optio n. Not Available [address], [address], 06/12/2024 09:30:19 06/11/2006/12/2024 COMPR EHENS VIN METAB OLIC PANEL glucose 115 mg/dL 65-99 high Fasti ng refer ence inter marisol For someo ne witho ut known diabe alysa, a gluco se value betwe en 100 and 125 mg/dL is consi stent with predi abete s and shoul d be confi rmed with a follo w-up test. Not Available [address] [address] [place], [address], 06/12/2024 09:30:21 06/11/2006/12/2024 COMPR EHENS VIN METAB OLIC PANEL urea nitrogen (BUN) 10 mg/dL 7-25 normal Not Available [address] [address] [place], [address], 06/12/2024 09:30:21 06/11/2006/12/2024 COMPR EHENS VIN METAB OLIC PANEL creatinine 0.82 mg/dL 0.70-1 .28 normal Not Available [address], [address], 06/12/2024 09:30:21 06/11/20 24 06/12/2024 COMPR EHENS VIN METAB OLIC PANEL eGFR 94 mL/mi n/1.7 3m2 > or = 60 normal Not Available [address], [address], 06/12/2024 09:30:21 06/11/20 24 06/12/2024 COMPR EHENS VIN METAB OLIC PANEL BUN/creatini ne ratio SEE NOTE: (calc ) 6-22 Not Repor vikas: BUN and Creat inine are withi n refer ence range . Not Available [address], [address], 06/12/2024 09:30:21 06/11/20 24 06/12/2024 COMPR EHENS VIN METAB OLIC PANEL sodium 138 mmol/ L 135-14 6 normal Not Available [address], [address], 06/12/2024 09:30:21 06/11/20 24 06/12/2024 COMPR EHENS VIN METAB OLIC PANEL potassium 4.5 mmol/ L 3.5-5. 3 normal Not Available [address], [address], 06/12/2024 09:30:21 06/11/20 24 06/12/2024 COMPR EHENS VIN METAB OLIC PANEL chloride 101 mmol/ L 98-110 normal Not Available [address], [address], 06/12/2024 09:30:21 06/11/20 24 06/12/2024 COMPR EHENS VIN METAB OLIC PANEL carbon dioxide 29 mmol/ L 20-32 normal Not Available [address] [place], [address], 06/12/2024 09:30:21 06/11/2006/12/2024 COMPR EHENS VIN METAB OLIC PANEL calcium 9.8 mg/dL 8.6-10 .3 normal Not Available [address], [address], 06/12/2024 09:30:21 06/11/2006/12/2024 COMPR EHENS VIN METAB OLIC PANEL protein, total 7.1 g/dL 6.1-8. 1 normal Not Available [address], [address], 06/12/2024 09:30:21 06/11/2006/12/2024 COMPR EHENS VIN METAB OLIC PANEL albumin 4.8 g/dL 3.6-5. 1 normal Not Available [address], [address], 06/12/2024 09:30:21 06/11/2006/12/2024 COMPR EHENS VIN METAB OLIC PANEL globulin 2.3 g/dL_ (calc ) 1.9-3. 7 normal Not Available [address], [address], 06/12/2024 09:30:21 06/11/2006/12/2024 COMPR EHENS VIN METAB OLIC PANEL albumin/glob ulin ratio 2.1 (calc ) 1.0-2. 5 normal Not Available [address], [address], 06/12/2024 09:30:21 06/11/20 24 06/12/2024 COMPR EHENS VIN METAB OLIC PANEL bilirubin, total 0.7 mg/dL 0.2-1. 2 normal Not Available [address], [address], 06/12/2024 09:30:21 06/11/20 24 06/12/2024 COMPR EHENS VIN METAB OLIC PANEL alkaline phosphatase 70 U/L 35-144 normal Not Available [facility] [employer] [address], [address], 06/12/2024 09:30:21 06/11/20 24 06/12/2024 COMPR EHENS VIN METAB OLIC PANEL AST 32 U/L 10-35 normal Not Available [address], [address], 06/12/2024 09:30:21 06/11/20 24 06/12/2024 COMPR EHENS VIN METAB OLIC PANEL ALT 27 U/L 9-46 normal Not Available [address], [address], 06/12/2024 09:30:21 06/11/20 24 06/12/2024 CBC (INCL UDES DIFF/ PLT) white blood cell count 4.5 thous and/u L 3.8-10 .8 normal Not Available [address], [address], 06/12/2024 09:30:22 06/11/20 24 06/12/2024 CBC (INCL UDES DIFF/ PLT) red blood cell count 4.20 marta on/uL 4.20-5 .80 normal Not Available [address], [address], 06/12/2024 09:30:22 06/11/20 24 06/12/2024 CBC (INCL UDES DIFF/ PLT) hemoglobin 13.0 g/dL 13.2-1 7.1 low Not Available [address], [address], 06/12/2024 09:30:22 06/11/20 24 06/12/2024 CBC (INCL UDES DIFF/ PLT) hematocrit 39.1 % 38.5-5 0.0 normal Not Available [address], [address], 06/12/2024 09:30:22 06/11/20 24 06/12/2024 CBC (INCL UDES DIFF/ PLT) MCV 93.1 fL 80.0-1 00.0 normal Not Available [facility] [address], [address], 06/12/2024 09:30:22 06/11/2006/12/2024 CBC (INCL UDES DIFF/ PLT) MCH 31.0 pg 27.0-3 3.0 normal Not Available [facility] [address], [address], 06/12/2024 09:30:22 06/11/2006/12/2024 CBC (INCL UDES DIFF/ PLT) MCHC 33.2 g/dL 32.0-3 6.0 normal For adult s, a sligh t decre ase in the calcu lated MCHC value (in the range of 30 to 32 g/dL) is most likel y not clini arsenio mcfarlandi ale t; agusto er, it shoul d be inter prete d with cauti on in [facility] n with other red cell joey eters and the patie nt's clini michell condi tion. Not Available [facility] [address], [address], 06/12/2024 09:30:22 06/11/2006/12/2024 CBC (INCL UDES DIFF/ PLT) RDW 13.4 % 11.0-1 5.0 normal Not Available [facility] [address], [address], 06/12/2024 09:30:22 06/11/20 24 06/12/2024 CBC (INCL UDES DIFF/ PLT) platelet count 71 thous and/u L 140-40 0 low Not Available [address] [place], [address], 06/12/2024 09:30:22 06/11/2006/12/2024 CBC (INCL UDES DIFF/ PLT) MPV 12.4 fL 7.5-12 .5 normal Not Available [address], [address], 06/12/2024 09:30:22 06/11/2006/12/2024 CBC (INCL UDES DIFF/ PLT) absolute neutrophils 2822 cells /uL 1500-7 800 normal Not Available [address], [address], 06/12/2024 09:30:22 06/11/2006/12/2024 CBC (INCL UDES DIFF/ PLT) absolute lymphocytes 815 cells /uL 850-39 00 low Not Available [address], [address], 06/12/2024 09:30:22 06/11/2006/12/2024 CBC (INCL UDES DIFF/ PLT) absolute monocytes 549 cells /uL 200-95 0 normal Not Available [address], [address], 06/12/2024 09:30:22 06/11/2006/12/2024 CBC (INCL UDES DIFF/ PLT) absolute eosinophils 297 cells /uL 15-500 normal Not Available [address], [address], 06/12/2024 09:30:22 06/11/2006/12/2024 CBC (INCL UDES DIFF/ PLT) absolute basophils 18 cells /uL 0-200 normal Not Available [address], [address], 06/12/2024 09:30:22 06/11/2006/12/2024 CBC (INCL UDES DIFF/ PLT) neutrophils 62.7 % normal Not Available [address], [address], 06/12/2024 09:30:22 06/11/2006/12/2024 CBC (INCL UDES DIFF/ PLT) lymphocytes 18.1 % normal Not Available [facility] [address], [address], 06/12/2024 09:30:22 06/11/2006/12/2024 CBC (INCL UDES DIFF/ PLT) monocytes 12.2 % normal Not Available [facility] [address], [address], 06/12/2024 09:30:22 06/11/2006/12/2024 CBC (INCL UDES DIFF/ PLT) eosinophils 6.6 % normal Not Available [facility] [address], [address], 06/12/2024 09:30:22 06/11/2006/12/2024 CBC (INCL UDES DIFF/ PLT) basophils 0.4 % normal Not Available [facility] [address], [address], 06/12/2024 09:30:22 06/11/2006/12/2024 HEMOG LOBIN A1C hemoglobin A1C 6.7 %_of_ total _HGB <5.7 high For someo ne witho ut known diabe alysa, a hemog lobin A1c value of 6.5% or great er indic ates that they may have diabe alysa and this shoul d be confi rmed with a follo w-up test. For someo ne with known diabe alysa, a value <7% indic ates that their diabe alysa is well contr olled and a value great er than or equal to 7% indic ates subop timal contr ol. A1c targe ts shoul d be indiv idual ized based on durat ion of diabe alysa, age, comor bid condi tions , and other consi derat ions. Curre ntly, no conse nsus exist s regar ding use of hemog lobin A1c for diagn osis of diabe alysa for child bry. Not Available [address], [address], 06/12/2024 09:30:23 06/26/20 24 06/27/2024 CBC (INCL UDES DIFF/ PLT) white blood cell count 4.2 thous and/u L 3.8-10 .8 normal Not Available [address], [address], 06/27/2024 09:19:27 06/26/2006/27/2024 CBC (INCL UDES DIFF/ PLT) red blood cell count 4.04 marta on/uL 4.20-5 .80 low Not Available [address], [address], 06/27/2024 09:19:27 06/26/20 24 06/27/2024 CBC (INCL UDES DIFF/ PLT) hemoglobin 12.9 g/dL 13.2-1 7.1 low Not Available [address], [address], 06/27/2024 09:19:27 06/26/20 24 06/27/2024 CBC (INCL UDES DIFF/ PLT) hematocrit 38.7 % 38.5-5 0.0 normal Not Available [address], [address], 06/27/2024 09:19:27 06/26/20 24 06/27/2024 CBC (INCL UDES DIFF/ PLT) MCV 95.8 fL 80.0-1 00.0 normal Not Available [address], [address], 06/27/2024 09:19:27 06/26/20 24 06/27/2024 CBC (INCL UDES DIFF/ PLT) MCH 31.9 pg 27.0-3 3.0 normal Not Available [address], [address], 06/27/2024 09:19:27 06/26/20 24 06/27/2024 CBC (INCL UDES DIFF/ PLT) MCHC 33.3 g/dL 32.0-3 6.0 normal For adult s, a sligh t decre ase in the calcu lated MCHC value (in the range of 30 to 32 g/dL) is most likel y not clini arsenio signi fican t; eleuterioev er, it shoul d be inter prete d with cauti on in corre latio n with other red cell joey eters and the patie nt's clini michell condi tion. Not Available [address], [address], 06/27/2024 09:19:27 06/26/20 24 06/27/2024 CBC (INCL UDES DIFF/ PLT) RDW 13.5 % 11.0-1 5.0 normal Not Available [address], [address], 06/27/2024 09:19:27 06/26/20 24 06/27/2024 CBC (INCL UDES DIFF/ PLT) platelet count 79 thous and/u L 140-40 0 low Not Available [address], [address], 06/27/2024 09:19:27 06/26/20 24 06/27/2024 CBC (INCL UDES DIFF/ PLT) MPV 11.9 fL 7.5-12 .5 normal Not Available [address], [address], 06/27/2024 09:19:27 06/26/20 24 06/27/2024 CBC (INCL UDES DIFF/ PLT) absolute neutrophils 2566 cells /uL 1500-7 800 normal Not Available [facility] [address] [place], [address], 06/27/2024 09:19:27 06/26/20 24 06/27/2024 CBC (INCL UDES DIFF/ PLT) absolute lymphocytes 781 cells /uL 850-39 00 low Not Available [address], [address], 06/27/2024 09:19:27 06/26/20 24 06/27/2024 CBC (INCL UDES DIFF/ PLT) absolute monocytes 550 cells /uL 200-95 0 normal Not Available [facility] [address], [address], 06/27/2024 09:19:27 06/26/20 24 06/27/2024 CBC (INCL UDES DIFF/ PLT) absolute eosinophils 281 cells /uL 15-500 normal Not Available [facility] [address], [address], 06/27/2024 09:19:27 06/26/20 24 06/27/2024 CBC (INCL UDES DIFF/ PLT) absolute basophils 21 cells /uL 0-200 normal Not Available [facility] [address], [address], 06/27/2024 09:19:27 06/26/20 24 06/27/2024 CBC (INCL UDES DIFF/ PLT) neutrophils 61.1 % normal Not Available [address], [address], 06/27/2024 09:19:27 06/26/20 24 06/27/2024 CBC (INCL UDES DIFF/ PLT) lymphocytes 18.6 % normal Not Available [facility] [address], [address], 06/27/2024 09:19:27 06/26/20 24 06/27/2024 CBC (INCL UDES DIFF/ PLT) monocytes 13.1 % normal Not Available [facility] [address] [place], [address], 06/27/2024 09:19:27 06/26/20 24 06/27/2024 CBC (INCL UDES DIFF/ PLT) eosinophils 6.7 % normal Not Available [address], [address], 06/27/2024 09:19:27 06/26/20 24 06/27/2024 CBC (INCL UDES DIFF/ PLT) basophils 0.5 % normal Not Available [facility] [address], [address], 06/27/2024 09:19:27 06/26/20 24 06/27/2024 FOLAT E, SERUM folate, serum 14.6 NG/mL normal Refer ence Range Low: <3.4 Borde rline : 3.4-5 .4 Gina l: >5.4 Not Available [address], [address], 06/27/2024 09:19:28 06/26/20 24 06/27/2024 VITAM IN B12 vitamin B12 385 pg/mL 200-11 00 normal Pleas e Note: Altho ugh the refer ence range for vitam in B12 is 200-1 100 pg/mL , it has been repor vikas that betwe en 5 and 10% of patie nts with value s betwe en 200 and 400 pg/mL may exper ience neuro psych iatri c and hemat ologi c abnor malit ies due to occul t B12 defic iency ; less than 1% of patie nts with value s above 400 pg/mL will have sympt oms. Not Available [address], [address], 06/27/2024 09:19:30 08/15/20 24 08/15/2024 CBC (INCL UDES DIFF/ PLT) white blood cell count 5.9 thous and/u L 3.8-10 .8 normal Not Available [facility] [address], [address], 08/15/2024 23:40:24 08/15/20 24 08/15/2024 CBC (INCL UDES DIFF/ PLT) red blood cell count 4.23 marta on/uL 4.20-5 .80 normal Not Available [address], [address], 08/15/2024 23:40:24 08/15/20 24 08/15/2024 CBC (INCL UDES DIFF/ PLT) hemoglobin 13.2 g/dL 13.2-1 7.1 normal Not Available [address], [address], 08/15/2024 23:40:24 08/15/20 24 08/15/2024 CBC (INCL UDES DIFF/ PLT) hematocrit 40.1 % 38.5-5 0.0 normal Not Available [address], [address], 08/15/2024 23:40:24 08/15/20 24 08/15/2024 CBC (INCL UDES DIFF/ PLT) MCV 94.8 fL 80.0-1 00.0 normal Not Available [address], [address], 08/15/2024 23:40:24 08/15/20 24 08/15/2024 CBC (INCL UDES DIFF/ PLT) MCH 31.2 pg 27.0-3 3.0 normal Not Available [address], [address], 08/15/2024 23:40:24 08/15/20 24 08/15/2024 CBC (INCL UDES DIFF/ PLT) MCHC 32.9 g/dL 32.0-3 6.0 normal For adult s, a sligh t decre ase in the calcu lated MCHC value (in the range of 30 to 32 g/dL) is most likel y not clini arsenio signi ale t; agusto er, it shoul d be inter prete d with cauti on in corre latio n with other red cell joey eters and the patie nt's clini michell condi tion. Not Available [facility] [address], [address], 08/15/2024 23:40:24 08/15/20 24 08/15/2024 CBC (INCL UDES DIFF/ PLT) RDW 13.4 % 11.0-1 5.0 normal Not Available [facility] [address], [address], 08/15/2024 23:40:24 08/15/20 24 08/15/2024 CBC (INCL UDES DIFF/ PLT) platelet count 93 thous and/u L 140-40 0 low Not Available [facility] [address], [address], 08/15/2024 23:40:24 08/15/20 24 08/15/2024 CBC (INCL UDES DIFF/ PLT) MPV 12.5 fL 7.5-12 .5 normal Not Available [address], [address], 08/15/2024 23:40:24 08/15/20 24 08/15/2024 CBC (INCL UDES DIFF/ PLT) absolute neutrophils 3511 cells /uL 1500-7 800 normal Not Available [facility] [address], [address], 08/15/2024 23:40:24 08/15/20 24 08/15/2024 CBC (INCL UDES DIFF/ PLT) absolute lymphocytes 1245 cells /uL 850-39 00 normal Not Available [address], [address], 08/15/2024 23:40:24 08/15/20 24 08/15/2024 CBC (INCL UDES DIFF/ PLT) absolute monocytes 797 cells /uL 200-95 0 normal Not Available [address], [address], 08/15/2024 23:40:24 08/15/20 24 08/15/2024 CBC (INCL UDES DIFF/ PLT) absolute eosinophils 319 cells /uL 15-500 normal Not Available [address], [address], 08/15/2024 23:40:24 08/15/20 24 08/15/2024 CBC (INCL UDES DIFF/ PLT) absolute basophils 30 cells /uL 0-200 normal Not Available [address], [address], 08/15/2024 23:40:24 08/15/20 24 08/15/2024 CBC (INCL UDES DIFF/ PLT) neutrophils 59.5 % normal Not Available [address], [address], 08/15/2024 23:40:24 08/15/20 24 08/15/2024 CBC (INCL UDES DIFF/ PLT) lymphocytes 21.1 % normal Not Available [address], [address], 08/15/2024 23:40:24 08/15/20 24 08/15/2024 CBC (INCL UDES DIFF/ PLT) monocytes 13.5 % normal Not Available [address], [address], 08/15/2024 23:40:24 08/15/20 24 08/15/2024 CBC (INCL UDES DIFF/ PLT) eosinophils 5.4 % normal Not Available [address], [address], 08/15/2024 23:40:24 08/15/20 24 08/15/2024 CBC (INCL UDES DIFF/ PLT) basophils 0.5 % normal Not Available [facility] [address], [place], [address], 08/15/2024 23:40:24 06/19/20 23 06/19/2023 XR, knee No observ ation record ed. [facility] [address], [place], [address], 06/19/2023 08:07:04 07/09/20 24 07/08/2024 US, abdom en + pelvi s No observ ation record ed. [email or web address] Not Available 2023 12:25:46 Result Notes None recorded. 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 Not Available [facility] 3 06:14:30 Disorder of shoulder 265981427 Active Not Available [facility] 3 06:14:30 Gastroeso phageal reflux disease 007663418 Active Not Available [facility] 3 06:14:30 Benign prostatic hyperplas ia 034818201 Active 2017 Not Available [facility] 3 06:14:30 Pure hyperchol esterolem ia 325689508 Active Not Available [facility] 3 06:14:31 Shoulder joint pain 920793437 Active Not Available [facility] 3 06:14:31 Type 2 diabetes mellitus without complicat ion 065380733 Active 2018 Not Available [facility] 3 06:14:31 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 201803/17/2020 Not Available [facility] 3 06:14:31 Depressiv e disorder 20777360 Active Not Available [facility] 3 06:14:31 Cough 06350955 Active 2021 Not Available [facility] 3 06:14:31 Essential hypertens ion 50610712 Active Not Available [facility] 3 06:14:31 Psoriasis 4313961 Active Not Available [facility] 3 06:14:31 Pain of right knee joint 43033074300 4100 Active 2022 Stella Garcia CMA null, [facility] [facility] 3 14:49:22 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 4 12:11:28 Anemia 233149723 Active 2023 Stella Garcia CMA null, [facility] [employer] [facility] 4 11:13:55 Cobalamin deficienc y 058720890 Active 2023 SHERRIE Grover null, [facility] [employer] [facility] 4 14:52:48 Hyperlipi demia 17636743 Active 2023 Rosaura Frank null, [facility] [employer] [facility] 4 12:29:05 Platelet count outside reference range 113693280 Active 2023 Stella Garcia CMA null, [facility] [employer] [facility] 4 10:42:07 Acute bronchiti s 28807114 Active 2024 Rufino Oates MD [address], [place], [address] , [facility] [employer] [facility] 5 11:44:10 Type 2 diabetes mellitus 37853189 Active 2024 Rufino Oates MD [address], [address], [place], [address] , [facility] [employer] [facility] 5 11:30:41 Thrombocy topenic disorder 676986741 Active 2024 Rufino Oates MD [address], [place], [address] , [facility] [employer] [facility] 5 11:34:56 Problem Notes None recorded. Procedures Surgical History Date Name Laterality Status Provider Name and Address Organization Details Recorded Time 4 Medicare Wellness CPT Code, Initial completed Katey Foote RN [place] - [facility] 05/01/2024 12:11:29 Imaging Results Imaging Date Name Status LastModified by Organiz ation Details LastModified Time 06/19/2023 XR, knee completed [email or web address] [facility] [address], [place], [address], 06/19/2023 08:07:04 07/08/2024 US, abdomen + pelvis completed [email or web address] Information not available 07/09/2024 12:25:46 Procedure Notes None recorded. Medical Equipment None Reported. Allergies Allergen ID Allergen Name Allergen Category Reaction Reaction Severity Criticality Documentation Date Start Date Code Code System Note Provider Name and Address Organization Details Recorded Time 71658 adhesive environme nt,medica tion rash Not available Not available 10/18/2022 13615 UNK manzo id Not Available [facility] 06:18:37 Medications Name Sig Start Date Stop Date Status Note LastModified by Organization Details LastModified Time cyclobenzap rine 10 mg tablet Take 1 tablet three times daily active Not Available Not Available No t Available amoxicillin 500 mg capsule Take 1 capsule 3 times a day by oral route for 10 days. 10/26 completed Not Available Not Available Not Available venlafaxine ER 75 mg capsule,ext ended release 24 hr take one capsule every day by mouth 01/09 completed Not Available Not Available Not Available venlafaxine 75 mg tablet Take 1 tablet every day by oral route. 01/09 completed Not Available Not Available Not Available trazodone 50 mg tablet TAKE 1-2 TABLETS (50 MG) BY ORAL ROUTE ONCE DAILY AT BEDTIME active Not Available Not Available No t Available azithromyci n 250 mg tablet TAKE 2 TABLETS BY MOUTH EVERY DAY FOR 1 DAY THEN TAKE 1 TABLET BY MOUTH DAILY 12/02 completed Not Available Not Available Not Available benzonatate 200 mg capsule TAKE 1 CAPSULE BY MOUTH THREE TIMES DAILY 12/02 completed Not Available Not Available Not Available Keflex 500 mg capsule Take 1 capsule 4 times a day by oral route. 09/27 completed Not Available Not Available Not Available betamethaso ne, augmented 0.05 % topical cream APPLY A THIN LAYER TO THE AFFECTED AREA(S) BY TOPICAL ROUTE TWICE DAILY 03/24 completed Not Available Not Available Not Available doxycycline hyclate 50 mg capsule Take 1 capsule every 12 hours by oral route. active Not Available Not Available No t Available pimecrolimu s 1 % topical cream 04/04 completed Not Available Not Available Not Available venlafaxine ER 150 mg capsule,ext ended release 24 hr TAKE 1 CAPSULE DAILY active Not Available Not Available No t Available amlodipine 2.5 mg tablet TAKE 1 TABLET DAILY active Not Available Not Available No t Available quinapril 40 mg tablet take one tablet daily 10/31 completed Not Available Not Available Not Available oxycodone-a cetaminophe n 5 mg-325 mg tablet TAKE 1 TABLET BY MOUTH EVERY 6 HOURS NEEDED FOR PAIN 10/31 completed Not Available Not Available Not Available betamethaso ne, augmented 0.05 % lotion APPLY TOPICALLY TO THE AFFECTED AREA(S) ONCE DAILY FOR 14 DAYS AND MASSAGE LIGHTLY UNTIL THE LOTION DISAPPEAR S; DO NOT USE MORE THAN 50ML PER WEEK 2022 active Not Available Not Available Not Avai lable betamethaso ne, augmented 0.05 % topical gel APPLY TWICE A DAY TO AREA NEEDED 03/20 completed Not Available Not Available Not Available tamsulosin 0.4 mg capsule take on capsule by mouth every evening 10/31 completed Not Available Not Available Not Available hydrocodone 7.5 mg-acetamin ophen 325 mg tablet Take 1 tablet every 6 hours by oral route. 10/26 completed Not Available Not Available Not Available cyanocobala min (vit B-12) 1,000 mcg/mL injection solution Inject 1 mL every month by subcutane ous route as directed. 2024 active Not Available Not Available Not Avai lable metformin 1,000 mg tablet TAKE 1 TABLET TWICE A DAY (DOSAGE CHANGED) active Not Available Not Available No t Available diclofenac sodium 75 mg tablet,joe yed release 10/26 completed Not Available Not Available Not Available zolpidem 5 mg tablet TK 1 T PO QD active Not Available Not Available No t Available Viagra 100 mg tablet One tab an hour before sexual encounter 03/20 completed Not Available Not Available Not Available testosteron e cypionate 200 mg/mL intramuscul ar oil 0.50 ML EVERY WEEK IM 03/17 completed Not Available Not Available Not Available clobetasol 0.05 % scalp solution active Not Available Not Available Not Available lisinopril 40 mg tablet TAKE 1 TABLET DAILY active Not Available Not Available No t Available metformin ER 500 mg tablet,exte nded release 24 hr Take 1 tablet twice a day by oral route before meals for 30 days. 01/23 completed Not Available Not Available Not Available betamethaso ne dipropionat e 0.05 % lotion APPLY A FEW DROPS TO THE AFFECTED AREA(S) TOPICALLY TWO TIMES A DAY IN THE MORNING AND AT BEDTIME; RUB IN GENTLY AND COMPLETEL Y active Not Available Not Available No t Available doxycycline hyclate 100 mg tablet Take 1 tablet twice a day by oral route. 03/20 completed Not Available Not Available Not Available finasteride 5 mg tablet Take 1 tablet(s) every day by oral route. 12/02 completed Not Available Not Available Not Available Bactrim DS 800 mg-160 mg tablet Take 1 tablet every 12 hours by oral route. 03/17 completed Not Available Not Available Not Available escitalopra m 10 mg tablet TAKE 1 TABLET DAILY 10/31 completed Not Available Not Available Not Available rosuvastati n 20 mg tablet TAKE 1 TABLET DAILY active Not Available Not Available No t Available Cialis 20 mg tablet Take 1 TABLET EVERY DAY an hour before sexual acitivty 10/26 completed Not Available Not Available Not Available Aspir-81 03/17 completed Not Available Not Available Not Available metformin ER 500 mg 24 hr tablet,exte nded release (gastric retention) Take 1 tablet twice a day by oral route. 10/31 completed Not Available Not Available Not Available Targadox 50 mg tablet 04/04 completed Not Available Not Available Not Available Vitals Date Recorded Body height Body mass index (BMI) Body weight Heart rate Body temperature Oxygen saturation Oxygen saturation in Arterial blood by Pulse oximetry Systolic blood pressure Diastolic blood pressure Provider Name and Address Organization Details Last Updated DateTime 3 172.72 cm 28.7 kg/m2 93369.9 6 g 84 /min 97 [degF] 98 % 98 % 120 mm[Hg] 64 mm[Hg] Teresa Leo [facility] 3 14:42:16 Date Recorded Body height Body mass index (BMI) Body weight Heart rate Body temperature Oxygen saturation Oxygen saturation in Arterial blood by Pulse oximetry Systolic blood pressure Diastolic blood pressure Provider Name and Address Organization Details Last Updated DateTime 4 172.72 cm 29 kg/m2 94338.1 4 g 89 /min 97 [degF] 98 % 98 % 160 mm[Hg] 80 mm[Hg] Teresa [facility] [facility] 4 11:58:47 Date Recorded Body height Body mass index (BMI) Body weight Heart rate Body temperature Oxygen saturation Oxygen saturation in Arterial blood by Pulse oximetry Systolic blood pressure Diastolic blood pressure Provider Name and Address Organization Details Last Updated DateTime 4 172.72 cm 28.3 kg/m2 52353.1 8 g 83 /min 97.8 [degF] 98 % 98 % 130 mm[Hg] 80 mm[Hg] SHERRIE Grover [place] [facility] 4 12:08:08 Date Recorded Body height Body mass index (BMI) Body weight Heart rate Body temperature Oxygen saturation Oxygen saturation in Arterial blood by Pulse oximetry Systolic blood pressure Diastolic blood pressure Provider Name and Address Organization Details Last Updated DateTime 5 172.72 cm 28.6 kg/m2 69961.3 7 g 102 /min 97 [degF] 99 % 99 % 118 mm[Hg] 60 mm[Hg] Teresa Cruz [employer] [facility] 5 11:20:26 Social History Question Answer Notes LastModified by Organizat ion Details LastModified Time Tobacco Smoking Status Never Smoker Katey Foote RN [facility], [place] [facility] 05/01/2024 12:12:23 Do You Have An Advance Directive? Yes [email or web address] Information not available 05/01/2024 Are You Blind Or Do You Have Difficulty Seeing? No [email or web address] Information not available 05/01/2024 Are You Deaf Or Do You Have Serious Difficulty Hearing? No [email or web address] Information not available 05/01/2024 What Type Of Diet Are You Following? REGULAR [email or web address] Information not available 05/01/2024 Have There Been Any Changes To Your Family Or Social Situation? No Information not available 05/01/2024 What Is The Fluoride Status Of Your Home? Unknown Information not available 05/01/2024 Where Do You Live? SingleLevelHouse [email or web address] Information not available 05/01/2024 Are You Able To Care For Yourself? Yes Information not available 05/01/2024 Are You Blind Or Do Yo Have Difficulty Seeing? No [email or web address] Information not available 05/01/2024 Are You Deaf Or Do You Have Serious Difficulty Hearing? No [email or web address] Information not available 05/01/2024 Live Alone Of With Others? With Others [email or web address] Information not available 05/01/2024 Do You Have A Medical Power Of Apparel Designer? Yes [email or web address] Information not available 05/01/2024 What Was The Date Of Your Most Recent Tobacco Screening? 05/01/2024 [email or web address] Information not available 05/01/2024 Do You Have Any Pets? No [email or web address] Information not available 05/01/2024 What Is Your Relationship Status? [email or web address] Information not available 05/01/2024 Do You Use Your Seat Belt Or Car Seat Routinely? Yes [email or web address] Information not available 05/01/2024 Do You Have Smoke And Carbon Monoxide Detectors In Your Home? Yes [email or web address] Information not available 05/01/2024 Are You Passively Exposed To Smoke? No [email or web address] Information not available 05/01/2024 Are There Any Smokers In Your House? No [email or web address] Information not available 05/01/2024 Do You Have Difficulty Walking Or Climbing Stairs? No [email or web address] Information not available 05/01/2024 Sex: Unknown Functional Status Question Answer Note LastModified by Organizat ion Details LastModified Time What is your level of alcohol consumption? Occasional [email or web address] Information not available 05/01/2024 Do you have transportation difficulties? No [email or web address] Information not available 05/01/2024 Are you able to walk? YESWOREST [email or web address] Information not available 05/01/2024 Do you have difficulty doing errands alone? No [email or web address] Information not available 05/01/2024 Are you able to care for yourself? Yes Information n ot available 05/01/2024 Do you have difficulty dressing or bathing? No [email or web address] Information not available 05/01/2024 What is your exercise level? Occasional [email or web address] Information not available 05/01/2024 Mental Status Question Answer Note LastModified by Organization D etails LastModified Time Do you have difficulty concentrating, remembering or making decisions? No [email or web address] Information no t available 05/01/2024 Family History Nothing Reported Notes:Mother at 57 from CHF and ASHD. Smoked heavily. Father at 70 from ASHD and SD. Has one brother and one sister both living and in good health. Sister has history of colon polyps. Medical History Condition Response NERVE DISEASE N BLINDNESS N RHEUMATIC FEVER N KIDNEY STONES N BLADDER PROBLEMS N MRSA N OTHER # 1 N POLIO N LUNG DISEASE/DISORDER N HISTORY OF DRUG ABUSE N RADIATION / CHEMOTHERAPY N COPD N Other # 2 N BLOOD DISEASES N EAR OR HEARING PROBLEMS N MUMPS N SHINGLES N BOWEL PROBLEMS N DEPRESSION (INCLUDING POST ) N STROKE/TIA N ULCERS N BENIGN PROSTATIC HYPERPLASIA N MEASLES N HYPOTENSION N MYOCARDIAL INFARCTION N OBESITY N GERD/NAUSEA N ANEURYSM N URINARY/BLADDER/KIDNEY PROBLEMS N CORONARY ARTERY DISEASE (CAD) N ADDICTION CONCERNS N Impotence N ENDOMETRIOSIS N USE OF BLOOD THINNERS N SKIN PROBLEMS N GASTROINTESTINAL DISORDER N PERIPHERAL VASCULAR DISEASE N MUSCLE,JOINT OR BONE PROBLEMS N GASTROINTESTINAL BLEEDING N BLOOD CLOTS N ASTHMA N CATARACTS N ERECTILE DYSFUNCTION N VARICOSITIES N GI PROBLEMS N Low Testosterone N INFERTILITY N AIDS/HIV N CHEMOTHERAPY / RADIATION N LIVER DISEASE N MALE HYPOGONADISM N HYPERTENSION Y Deficiency N TOURETTE'S N ANXIETY DISORDER N BLOOD TRANSFUSION N ANEMIA/BLOOD DISORDER N CHRONIC EAR INFECTIONS N BRONCHITIS N TUBERCULOSIS N GLAUCOMA N FOOT PROBLEM N DIVERTICULITIS N SLEEP APNEA N CHICKENPOX N INFECTIOUS DISEASE N PROSTATE N HEART ARRHYTHMIA N INSOMNIA N HIGH CHOLESTEROL / HYPERLIPIDEMIA Y EYE PROBLEMS N HYPERTHYROIDISM N EDEMA N CHRONIC PAIN SYNDROME N HYPOTHYROIDISM N CONSTIPATION N CAROTID BLOCKAGE N BACK / NECK PROBLEMS N HAVE YOU BEEN HOSPITALIZED OR SEEN IN [facility] IN THE PAST YEAR ? N ATHEROSCLEROSIS N BREAST PROBLEMS N DIALYSIS N ECZEMA N OSTEOPOROSIS N ARTHRITIS N NO SIGNIFICANT PAST MEDICAL HISTORY N APPENDICITIS N DIABETES, TYPE N BAD TEETH N ENT N HEARTBURN / REFLUX Y AUTISM SPECTRUM DISORDER (ASD) N HEPATITIS / LIVER DISEASE N GOUT N SLEEP DISORDER N ALZHEIMER'S DISEASE N Brain Problems N DEMENTIA N HERPES N SEIZURES/EPILEPSY N HEADACHES/MIGRAINES N VASCULAR DISEASE N PACEMAKER N Blood Disorder N DIZZINESS N HEART DISEASE/HEART PROBLEMS N KIDNEY DISEASE N MULTIPLE SCLEROSIS N CANCER: SPECIFY N CARDIAC ARRHYTHMIA N ATRIAL FIBRILLATION N Gall Stones N PULMONARY EMBOLISM N AUTOIMMUNE DISEASE N Immunizations Vaccine Type Date Status Note Provider Nam e and Address Organization Details Recorded Time SARS-COV-2 (COVID-19) vaccine, UNSPECIFIED 1 completed Not Available [facility] 10/18/2022 06:18:30 influenza nasal, unspecified formulation 2 completed Not Available [facility] 10/18/2022 06:18:31 Influenza, split virus, quadrivalent, preservative 1 completed Not Available [facility] 10/18/2022 06:18:31 SARS-COV-2 (COVID-19) vaccine, UNSPECIFIED 1 completed Not Available [facility] 10/18/2022 06:18:31 SARS-COV-2 (COVID-19) vaccine, UNSPECIFIED 1 completed Not Available [facility] 10/18/2022 06:18:31 Influenza, split virus, quadrivalent, PF 8 completed Not Available [facility] 10/18/2022 06:18:31 Past Encounters Encounter ID Performer Location Encounter Start Date Encounter Closed Date Diagnosis/Indication Diagnosis SNOMED-CT Code Diagnosis ICD10 Code Diagnosis Note [id number] Rufino Oates MD [facility] [address] [place] [address] [address] 03/21/2021 00:00:00 03/21/2021 17:14:08 [id number] Rufino Oates MD Shania[facility] [address] [place] [address] [address] 09/19/2021 00:00:00 09/19/2021 17:10:59 [id number] Rufino Oates MD Shania[facility] [place] [facility] [address] [address] 03/20/2022 00:00:00 03/20/2022 17:22:38 [id number] Rufino Oates MD [facility] Internal Med [facility] [address] [address] 09/18/2022 00:00:00 09/18/2022 17:37:24 [id number] Rufino Oates MD [facility] Med [facility] [address] [address] 04/04/2023 14:24:25 04/04/2023 15:05:13 Essential hypertension 19735397 I10 Pure hypercholesterolemia 865074810 E78.00 Type 2 imelda betes mellitus without complication 684407969 E11.9 Testicular hypofunction 517979197 E29.1 [id number] Rufino Oates MD [facility] [place] Med [facility] [address] [address] 11/01/2023 11:50:03 11/01/2023 12:22:21 Essential hypertension 38318899 I10 Pure hypercholesterolemia 238911297 E78.00 Type 2 imelda betes mellitus without complication 125421499 E11.9 Gastroesop hageal reflux disease 096957927 K21.9 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 Benign pro static hyperplasia 727466073 N40.0 [id number] Rufino Oates MD [facility] Internal Med [facility] [address] [place] [address] , [place] [address] 05/01/2024 12:00:24 05/01/2024 17:52:44 Adult health examination 597628661 Z00.00 Screening for disorder 854437588 Z13.9 Essential hypertension 16333587 I10 Pure hypercholesterolemia 047516039 E78.00 Type 2 imelda betes mellitus without complication 150229639 E11.9 Testicular hypofunction 395553940 E29.1 Benign pro static hyperplasia 388781277 N40.0 [id number] Rufino Oates MD [facility] [place] [facility] [address] [facility] [address] [place] [address] 08/07/2024 10:07:01 08/07/2024 17:37:30 [id number] Rufino Oates MD [facility] Care Madina wilson [address] [place] [address] [address] [place] [address] 12/02/2024 10:55:21 12/02/2024 11:45:46 Essential hypertension 03808081 I10 Pure hypercholesterolemia 260923979 E78.00 Type 2 imelda betes mellitus 58703882 E11.9 Psoriasis 1878699 L40.9 Thrombocyt openic disorder 035574688 D69.6 Health Concerns Section Related Observation LastModified by Organization Detai ls LastModified Time None Recorded Concern Status LastModified by Organization Details LastModified Time None Recorded Advance Directives Directive Y: Payers Encounter Date Sequence Insurance Name Policy Number Policy Ding Covered Member ID Dign Member ID Guarantor Name 04/04/2023 1 [employer] (MEDICARE REPLACEMENT /ADVANTAGE - HMO) [id number] Jude R [place] [id number] Jude R [place] 11/01/2023 1 [employer] (MEDICARE REPLACEMENT /ADVANTAGE - HMO) [id number] Jude R [place] [id number] Jude R [place] 05/01/2024 1 [employer] (MEDICARE REPLACEMENT /ADVANTAGE - HMO) [id number] Jude R [place] [id number] Jude R [place] 08/07/2024 1 [employer] (MEDICARE REPLACEMENT /ADVANTAGE - HMO) [id number] Jude R [place] [id number] Jude R [place] 12/02/2024 1 [employer] (MEDICARE REPLACEMENT /ADVANTAGE - HMO) [id number] L Jude R [place] [id number] Jude R [place] Notes Date Note Type Note Provider Name and Address Organization Details Recorded Time 04/04/2023 text/html Patient Name: Ra mccarty SinghDate Of Service: Sunday ( 04.04.2023 ): 1955 Age: 68 There has been approximately a 2 lb weight loss since 09/18/2022. This represents approximately a 1.0% change in weight. Weight change attributable to lifestyle changes. Vital Signs:Blood Pressure: Sitting Rt. Arm 120/64Pulse: Sitting 84 /min and RegularRespirations: 12Height 68 in or 1.7 mWeight 189 lb or 85.7 kgBMI 28.7Temperature: 97 F or 36.1 CPulse Oximetry: 98 % at rest on no oxygen Chief Complaint: Addressed in HPI Problems or conditions discussed in the HPI were the only ones reviewed during the encounter.Only social and family history addressed in the HPI were reviewed during this encounter. Attendant(s): None Constitutional and Systemic Symptoms: none Medication Reconciliation: from medication list. History of Present Illness #1. Essential Hypertension: Stage: Stage I Interval Neurological Complaints no headaches, dizziness, weakness, visual changes, ataxia, aphasia and apraxia. No shortness of breath, orthopnea or cardiovascular symptoms. No other symptoms related to end organ damage. Pressure has been under excellent control. Currently normal. No other end organ symptoms or findings. Therapy reviewed regarding management of hypertension and includes salt restriction and Accupril and Norvasc. #2. Type II Hypercholesterolaemia: Currently taking medication and tolerating well. No interval complaints of any muscle pain or arthralgia. No significant liver changes with medications. Last lipid panel: fair control. Therapy reviewed regarding treatment of cholesterol management and include diet and Crestor. #3. Type II Diabetes: Has had no polyuria polyphagia or polydipsia. Has had no hypoglycemic like responses. No new history of any numbness, tingling, weakness or visual problems. No nausea, anorexia or other constitutional symptoms. There has been no foot problems or non healing lesions. The last HAIC was DCCT HAIC: 6.1 Calculated MB mg%. Average blood sugars 116-125 mg%. Checking sugars : several times a week Medication Types Include: Metformin Secondary complications include none. Macro-vascular complications include none. Therapy reviewed regarding diabetic management and include Metformin Hydrochloride Er Compliance: good Renal Protection: RORO inhibitors Lipid management: statins Urinary microalbumin: A1 . Ophthalmological: has seen eye doctor within the last year #4. Testicular Hypofunction: Stable. Libido and energy levels are good. No significant problems with performing daily activities. Taking medication: no medication. No other systemic complaints related to hypogonadism.Medication List Reviewed and Reconciled 04/04/2023Venlafaxine Hydrochloride 150 MG CAPSULE, EXTENDED RELEASE One DailyCrestor 20 MG (TABLET - ORAL) One DailyTamsulosin Hydrochloride .4 MG CAPSULE One DailyBetamethasone 0.05% (LOTION - TOPICAL) Apply Twice A DayAccupril 40 MG (TABLET - ORAL) One DailyNorvasc 2.5 MG (TABLET - ORAL) One DailyMetformin Hydrochloride Er 500 MG BidADRs List Reviewed 04/04/2023Lipitor MyalgiasSulfa Drugs RashClindamycin RashVaccination and Zignyonwntqb2791-07 Xsbhrqlyk6761-30 Covid Booster Uubxyl6078-24 Covid Sgqejuc8967-19 DtapSurgical HistoryUS Abscess Drainage Left KneePreventative Testing Confirmed by Our Nmieulw9510/24/2022 ALBUMIN 4.4 G/DL10/24/2022 PSA 0.18 NG/ML10/24/2022 MICRO ALBUMIN 1.1 MG/DL10/24/2022 HAIC 6.1 % OF TOTAL HGB 08/16/2018 COLONOSCOPY (10 YEARS) 08/16/2028Social HistoryQuit smoking approximately 1989. Smoke one pack daily for some 10+ years. 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 Smoked heavily.Father at 70 from ASHD and SD.Has one brother and one sister. Brother from S[facility]. . Sister living has history of colon polyps. Rufion Oates MD [address] [place] [address], [facility] [address], [place], [address], [facility] 04/04/2023 15:01:48 11/01/2023 text/html Patient Name: [facility]ccarty [facility]: October ( 11.01.2023 ): 1955 Age: 68 There has been approximately a 2 lb weight gain since 04/04/2023. This represents approximately a 1.1% change in weight. Weight change attributable to lifestyle changes. Vital Signs:Blood Pressure: Sitting Rt. Arm 160/80Pulse: Sitting 89 /min and RegularRespiratory Rate: 12Height 68 in or 1.7 mWeight 191 lb or 86.6 kgBMI 29.0Temperature: 97 F or 36.1 CPulse Oximetry: 98 % at rest on no oxygen Chief Complaint: Addressed in HPI Problems or conditions discussed in the HPI were the only ones reviewed during the encounter.Only social and family history addressed in the HPI were reviewed during this encounter. Attendant(s): NoneConstitutional and Systemic Symptoms:none Medication Reconciliation: from medication list. History of Present Illness #1. Essential Hypertension: Stage: Stage I Interval Neurological Complaints no headaches, dizziness, weakness, visual changes, ataxia, aphasia and apraxia. No shortness of breath, orthopnea or cardiovascular symptoms. No other symptoms related to end organ damage. Pressure has been fair control though systolic elevation of the blood pressure is noted today. Currently normal. No other end organ symptoms or findings. Therapy reviewed regarding management of hypertension and includes salt restriction and Accupril and Norvasc. #2. Type II Hypercholesterolaemia: Currently taking medication and tolerating well. No interval complaints of any muscle pain or arthralgia. No significant liver changes with medications. Last lipid panel: fair control. Therapy reviewed regarding treatment of cholesterol management and include diet and Crestor. #3. Type II Diabetes: Has had no polyuria polyphagia or polydipsia. Has had no hypoglycemic like responses. No new history of any numbness, tingling, weakness or visual problems. No nausea, anorexia or other constitutional symptoms. There has been no foot problems or non healing lesions. [facility]: 6.1 Calculated MB mg%. Average blood sugars 125-150 mg%. Checking sugars : infrequently Medication Types Include: Metformin Secondary complications include none. Macro-vascular complications include none. Therapy reviewed regarding diabetic management and include Metformin Hydrochloride Er Compliance: good Renal Protection: RORO inhibitors Lipid management: statins Urinary microalbumin: not performed recently . Ophthalmological: has seen eye doctor within the last year #4. Hx of esophageal reflux currently stable. Hx of Complications: none The severity, duration and intensity of symptoms have improved. Frequency: most meals Treatment consists medications taken on intermittent basis. Current therapy includes no medication. There has been no nausea, eructation, vomiting, hematemesis, dysphagia, velopharyngeal insufficiency and odynophagia. No change in he frequency or intensity of symptoms. Has had no melena. Has had no . Discussed use of H2 antagonists NA. #5. Recent history of pain and swelling of the right knee subsequently diagnosis pseudogout. No interval complaints of any new problems. Seems to be doing reasonably well from that.: #6. Hx of BPH currently stable. No change in strength or initiation of urinary stream. No post voiding problems. No hx of any fever or chills. Currently taking started Proscar. Active Medication ListVenlafaxine Hydrochloride 150 MG CAPSULE, EXTENDED RELEASE One DailyCrestor 20 MG (TABLET - ORAL) One DailyBetamethasone 0.05% (LOTION - TOPICAL) Apply Twice A DayAccupril 40 MG (TABLET - ORAL) One DailyNorvasc 2.5 MG (TABLET - ORAL) One DailyMetformin Hydrochloride Er 500 MG BidDoxycycline 100 MG TABLET One Twice A DayProscar 5 MG TABLET, FILM COATED One Daily Adverse Drug Reactions ReviewedLipitor MyalgiasSulfa Drugs RashClindamycin Rash Vaccination and Aytpvqdpvwtk2731-45 Ysqlbmfud4196-82 Covid Booster Rvvrein5236-31 Covid Kjzxlue9695-57 Tdap Surgical Uocdyng0153-97 Abscess Drainage Left Knee Preventative Vqmbhgs0804/25/2023 ALBUMIN 4.9 G/DL N010/24/2022 PSA 0.18 NG/ML N010/24/2022 MICRO ALBUMIN 1.1 MG/DL N010/24/2022 HAIC 6.1 % OF TOTAL HGB 08/16/2018 COLONOSCOPY (10 YEARS) 08/16/2028 Social HistoryQuit smoking approximately 1989. Smoke one pack daily for some 10+ years. 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 Family HistoryMother at 57 from CHF and ASHD. Smoked heavily.Father at 70 from ASHD and SD.Has one brother and one sister. Brother from [place]. . Sister living has history of colon polyps. Rufino Oates MD [address] [place] [address], [facility] [address], [place], [address], [facility] 11/01/2023 12:18:55 05/01/2024 text/html Patient Name: [facility] Of Service: April ( 05.01.2024 ): 1955 Age: 69 There has been approximately a 5 lb weight loss since 11/01/2023. This represents approximately a 2.6% change in weight. Weight change attributable to lifestyle changes. Vital Signs:Blood Pressure: Sitting Rt. Arm 130/80Pulse: Sitting 83 /min and RegularRespiratory Rate: 14Height 68 in or 1.7 mWeight 186 lb or 84.4 kgBMI 28.3Temperature: 97.8 F or 36.6 CPulse Oximetry: 98 % at rest on no oxygen Chief Complaint: Addressed in HPI Problems or conditions discussed in the HPI were the only ones reviewed during the encounter.Only social and family history addressed in the HPI were reviewed during this encounter. A significant, separate E/M service was performed to evaluate the current and new problems. Attendant(s): NoneConstitutional and Systemic Symptoms:none Medication Reconciliation: from medication list. History of Present Illness Reviewed the findings of the preventative health visit. Addressed all areas with the patient, patient's family or caregivers. Preventative examinations and testing immunizations - vaccinations, colonic neoplasm screening and PSA all reviewed and ordered where patient was amenable to the recommendations. Cognitive function was normal. Depression addressed and where necessary medications were adjusted or instituted. End of life and living will briefly discussed with patient and where these can be filled out and legally executed. Other blood and imaging studies were ordered if considered necessary. Other recommendations may be found in the encounter note. #1. Essential Hypertension: Stage: normal Interval Neurological Complaints no headaches. No shortness of breath, orthopnea or cardiovascular symptoms. No other symptoms related to end organ damage. Pressure has been under fair control. Currently normal. No other end organ symptoms or findings. Therapy reviewed regarding management of hypertension and includes salt restriction and Norvasc. #2. Type II Hypercholesterolaemia: Currently taking medication and tolerating well. No interval complaints of any muscle pain or arthralgia. No significant liver changes with medications. Last lipid panel: fair control. Therapy reviewed regarding treatment of cholesterol management and include diet and Crestor. #3. Type II Diabetes: Has had no polyuria polyphagia or polydipsia. Has had no hypoglycemic like responses. No new history of any numbness, tingling, weakness or visual problems. No nausea, anorexia or other constitutional symptoms. There has been no foot problems or non healing lesions. The last HAIC was [facility] HAIC: 7.7 Calculated MB mg%. CGM: No. Average blood sugars unknown. Checking sugars : infrequently. Medication Types Include: Metformin Secondary complications include none. Macro-vascular complications include none. Therapy reviewed regarding diabetic management and include Metformin Hydrochloride Er Compliance: good Renal Protection: RORO inhibitors Lipid management: statins Urinary microalbumin: A1 . Ophthalmological: has seen eye doctor within the last year. Control: Intermediate Control 7.1 - 8.0 #4. Testicular Hypofunction: Stable. Libido and energy levels are good. No significant problems with performing daily activities. Taking medication: testosterone injections. No other systemic complaints related to hypogonadism. #5. Hx of BPH currently stable. No change in strength or initiation of urinary stream. No post voiding problems. No hx of any fever or chills. Currently taking Proscar intermittently. Active Medication ListVenlafaxine Hydrochloride 150 MG CAPSULE, EXTENDED RELEASE One DailyCrestor 20 MG (TABLET - ORAL) One DailyBetamethasone 0.05% (LOTION - TOPICAL) Apply Twice A DayLisinopril 40 MG (TABLET - ORAL) One DailyNorvasc 2.5 MG (TABLET - ORAL) One DailyMetformin Hydrochloride Er 1000 MG BidDoxycycline 50 MG CAPSULE One Twice A DayProscar 5 MG TABLET, FILM COATED One Daily Adverse Drug Reactions ReviewedLipitor MyalgiasSulfa Drugs RashClindamycin Rash Vaccination and Vdsquaikgmfh5705-87 Raaeptuxa0948-60 Covid Booster Oaofjbm4410-31 Covid Pqtllac6037-75 Tdap Surgical Ogihupd0598-98 Abscess Drainage Left Knee Preventative Testing( ) 12/04/2023 Albumin 4.5 G/DL N( ) 12/04/2023 PSA 0.23 NG/ML 12/03/2025( ) 12/04/2023 Micro Albumin 4.2 MG/DL N( ) 12/04/2023 HAIC 7.7 % OF TOTAL HGB H( ) 08/16/2018 Colonoscopy (10 Years) 08/16/2028 Social HistoryQuit smoking approximately 1989. Smoke one pack daily for some 10+ years. 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 Family HistoryMother at 57 from CHF and ASHD. Smoked heavily.Father at 70 from ASHD and SD.Has one brother and one sister. Brother from [place]. . Sister living has history of colon polyps. TEST RESULT RANGE UNITSHEMOGLOBIN A1C Date: 12/04/2023HEMOGLOBIN A1C 7.7 <5.7 % OF TOTAL HGBLIPID PANEL, STANDARD Date: 4CHOLESTEROL, TOTAL 174 <200 MG/DLHDL CHOLESTEROL 51 > OR = 40 MG/DLTRIGLYCERIDES 289 <150 MG/DLLDL-CHOLESTEROL 85 MG/DL (CALC) Rufino Oates MD [address] [facility], [facility] [address], [place], [address], [facility] [employer] 05/01/2024 17:50:14 12/02/2024 text/html Patient Name: Ra bibiana Abdul Of Service: Sunday ( 12.02.2024 ): 1955 Age: 69 There has been approximately a 2 lb weight gain since 05/01/2024. This represents approximately a 1.1% change in weight. Weight change attributable to lifestyle changes. Vital Signs:Blood Pressure: Sitting Rt. Arm 118/60Pulse: Sitting 102 /min and 99Respiratory Rate: 16Height 68 in or 1.7 mWeight 188 lb or 85.3 kgBMI 28.6Temperature: 97 F or 36.1 C Chief Complaint: Addressed in HPI Problems or conditions discussed in the HPI were the only ones reviewed during the encounter.Only social and family history addressed in the HPI were reviewed during this encounter. Attendant(s): NoneConstitutional and Systemic Symptoms:none Medication Reconciliation: from medication list. History of Present Illness #1. Essential Hypertension: Stage: Stage I Interval Neurological Complaints no headaches, dizziness, weakness, visual changes, ataxia, aphasia and apraxia. No shortness of breath, orthopnea or cardiovascular symptoms. No other symptoms related to end organ damage. Pressure has been under fair control. Currently normal. No other end organ symptoms or findings. Therapy reviewed regarding management of hypertension and includes salt restriction and Lisinopril and Norvasc. #2. Type II Hypercholesterolaemia: Currently taking medication and tolerating well. No interval complaints of any muscle pain or arthralgia. No significant liver changes with medications. Last lipid panel: fair control. Therapy reviewed regarding treatment of cholesterol management and include diet and Crestor. #3. Type II Diabetes: Has had no polyuria polyphagia or polydipsia. Has had no hypoglycemic like responses. No new history of any numbness, tingling, weakness or visual problems. No nausea, anorexia or other constitutional symptoms. There has been no foot problems or non healing lesions. The last HAIC was [facility] HAIC: 6.7 Calculated MB mg%. CGM: No. Average blood sugars 125-150 mg%. Checking sugars : approximately once daily. Medication Types Include: Metformin Secondary complications include none. Macro-vascular complications include none. Therapy reviewed regarding diabetic management and include Metformin Hydrochloride Er Compliance: good Renal Protection: RORO inhibitors Lipid management: statins Urinary microalbumin: A1 . Ophthalmological: has seen eye doctor within the last year. Control: Good Control 6.2 - 7.0 #4. History of psoriasis. Predominately involving arms, trunk, back, thighs and hips. There has been no change in the condition. Currently taking Betamethasone.#5. History of some borderline thrombocytopenia with platelet counts running around 99,000. B12 levels were within acceptable ranges but at the lower limits of normal. Will consider giving some B12 supplements pending a repeat value. Is otherwise clinically stable Active Medication ListVenlafaxine Hydrochloride 150 MG CAPSULE, EXTENDED RELEASE One DailyCrestor 20 MG (TABLET - ORAL) One DailyBetamethasone 0.05% (LOTION - TOPICAL) Apply Twice A DayLisinopril 40 MG (TABLET - ORAL) One DailyNorvasc 2.5 MG (TABLET - ORAL) One DailyMetformin Hydrochloride Er 1000 MG BidDoxycycline 50 MG CAPSULE One Twice A Day Adverse Drug Reactions ReviewedLipitor MyalgiasSulfa Drugs RashClindamycin Rash Vaccination and Immunization(X) 2005- TDAP(X) 2021- INFLUENZA( ) 2020- COVID MODERNA(X) 2020- COVID BOOSTER MODERNA Surgical Hbqdqhk8280-63 US Abscess Drainage Left Knee Preventative Testing( ) 06/11/2024 Albumin 4.8 G/DL N( ) 06/11/2024 HAIC 6.7 % OF TOTAL HGB H( ) 12/04/2023 PSA 0.23 NG/ML 12/03/2025( ) 12/04/2023 Micro Albumin 4.2 MG/DL N( ) 08/16/2018 Colonoscopy (10 Years) 08/16/2028 Social HistoryQuit smoking approximately 1989. Smoke one pack daily for some 10+ years. 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 Family HistoryMother at 57 from CHF and ASHD. Smoked heavily.Father at 70 from ASHD and SD.Has one brother and one sister. Brother from S[place]. . Sister living has history of colon polyps. TEST RESULT RANGE UNITSCBC (INCLUDES DIFF/PLT) Date: 08/15/2024WHITE BLOOD CELL COUNT 5.9 3.8-10.8 THOUSAND/ULHEMOGLOBIN 13.2 13.2-17.1 G/DLHEMATOCRIT 40.1 38.5-50.0 %PLATELET COUNT 93 140-400 THOUSAND/ULCOMPREHENSIV E METABOLIC PANEL Date: 06/11/2024SODIUM 138 135-146 MMOL/LPOTASSIUM 4.5 3.5-5.3 MMOL/LGLUCOSE 115 65-99 MG/DLUREA NITROGEN (BUN) 10 7-25 MG/DLCREATININE 0.82 0.70-1.28 MG/DLEGFR 94 > OR = 60 ML/MIN/1.88A3HWXYWPZ 9.8 8.6-10.3 MG/DLALKALINE PHOSPHATASE 70 35-144 U/LAST 32 10-35 U/LALT 27 9-46 U/LHEMOGLOBIN A1C Date: 06/11/2024HEMOGLOBIN A1C 6.7 <5.7 % OF TOTAL HGBLIPID PANEL (REFL) Date: 4CHOLESTEROL, TOTAL 153 <200 MG/DLHDL CHOLESTEROL 56 > OR = 40 MG/DLTRIGLYCERIDES 188 <150 MG/DLLDL-CHOLESTEROL 71 MG/DL (CALC) Rufino Oates MD [address] [facility], [facility] [address], [place], [address], [place] [facility] 12/02/2024 11:38:06
--- NOTE | 2025-01-09 10:18 | ED_ITS ---
HPI - Extremity Injury (Lower) General Chief Complaint: Extremity Injury, Lower Stated Complaint: RT Knee Injury Time Seen by Provider: 01/09/25 10:20 Source: patient, RN notes reviewed and old records reviewed Mode of arrival: ambulatory Limitations: no limitations History of Present Illness HPI Narrative: 69-year-old male presents to the [facility] with complaints of right knee pain and swelling. Patient states that he fell onto his knee on Sunday, 4 days ago. Has taking ibuprofen. Has a history of receiving knee injections and arthrocentesis by a doctor at [facility] multiple times. states he called his doctor and has an appointment at the end January. Injury: Right: knee Treatments prior to arrival: NSAIDS Related Data Home Medications ?Medication ?Instructions ?Recorded ?Confirmed ?Last Taken ?Type amlodipine 2.5 mg tablet mg 01/09/25 Unknown History clobetasol 0.05 % scalp solution topical 01/09/25 Unknown History clobetasol 0.05 % topical cream topical 01/09/25 Unknown History lisinopril 40 mg tablet mg 01/09/25 Unknown History metformin 1,000 mg tablet mg 01/09/25 Unknown History rosuvastatin 20 mg tablet mg 01/09/25 Unknown History venlafaxine 150 mg mg PO 01/09/25 Unknown History capsule,extended release 24 hr Allergies Allergy/AdvReac Type Severity Reaction Status Date / Time No Known Allergies Allergy Verified 01/09/25 10:21 Review of Systems Review of Systems: All systems reviewed & are unremarkable except as noted in HPI and below Constitutional: Constitutional: Reports no additional constitutional complaints ENT: Reports system reviewed and no additional complaints, except as documented Cardiovascular: Cardiovascular: Reports no additional cardiovascular complaints, Denies chest pain and Denies dyspnea Respiratory: Respiratory: Reports no additional respiratory complaints, Denies chest congestion, Denies cough and Denies dyspnea Musculoskeletal: Musculoskeletal: Reports as per HPI, Reports arthralgias and Reports joint swelling Integumentary/Breasts: Skin/Breast: Reports system reviewed and no additional complaints, except as [facility]u [facility] Past Medical History Medical History (Updated 01/09/25 @ 11:10 by Karen Nguyen APRN) High cholesterol History of high blood pressure Comments At the time of my signature, I reviewed and agree with the nursing past medical, surgical, social, and family history. There is no relevant family history pertinent to the patient complaint. Exam Const: General: cooperative, healthy appearing, comfortable, no acute distress, well developed, alert and well nourished Nutritional Appearance: well nourished Orientation/consciousness: patient oriented x3 Limitations: no limitations HENMT: Head: normal to inspection Eyes: General: appearance normal, both eyes and all related structures Alignment and Position: alignment normal Neck: Neck: normal visual inspection, full ROM, no lymphadenopathy and no meningeal signs Chest: Chest palpation & inspection: normal inspection of the chest Resp: Effort & Inspection: normal respiratory effort and able to speak in complete sentences Cardio: Rate: regular rate Skin: General skin exam: normal color and no rashes or lesions noted Neuro: General: patient oriented x3, moves all extremities and no meningeal signs Cognition (Neuro): normal cognition Speech: normal speech Extrem: General: normal to inspection, full ROM, capillary refill normal and Limp noted Right lower extremity: full ROM, normal capillary refill, knee Details: swelling and normal ROM; no abrasions, no lacerations, no ecchymosis, no crepitus, no penetrating wound and no deformity and lower leg Details: normal to inspection and no edema; no erythema, no tenderness and no localized swelling Psych: Appearance: grossly normal and well kempt Mental Status: mental status grossly normal Speech and movement: Normal speech and movement present and Clear speech present Affect: normal affect Attitude: cooperative Course Course Level of Care: Express Care Visit Vital Signs Vital signs: Vital Signs Temperature 97.3 F L 01/09/25 10:21 Pulse Rate 82 01/09/25 10:21 Respiratory Rate 18 01/09/25 10:21 Blood Pressure 132/71 01/09/25 10:21 Pulse Oximetry 99 01/09/25 10:21 Oxygen Delivery Room Air 01/09/25 10:21 Temperature 97.3 F L 01/09/25 10:21 Pulse Rate 82 01/09/25 10:21 Respiratory Rate 18 01/09/25 10:21 Blood Pressure 132/71 01/09/25 10:21 Pulse Oximetry 99 01/09/25 10:21 Oxygen Delivery Room Air 01/09/25 10:21 Reviewed MDM - Extremity Injury (Lower) MDM Narrative Medical decision making narrative: Patient sitting in exam room. Patient presents with swelling and pain post fall and landing on his knee X-ray shows no acute findings. Patient appropriate for outpatient treatment with close follow Discharge instructions reviewed with patient, as well as provided in writing per nursing staff. The instructions also include specific and strict return/GO TO THE ER as well as f/u information. All questions have been answered, and the patient deny any further questions with discharge and discharge plan. Some parts of this dictation were generated by voice recognition software and may contain typographical and/or grammatical inaccuracies. Differential Diagnosis Differential diagnosis: Likely other (Knee sprain, sprain, fracture, effusion) Imaging Data Radiologist's impression: XR knee RT 3V Ordering provider: Karen Nguyen APRN History: . pain and swelling post fall . Comparison: None. FINDINGS: BONES: No acute fracture or dislocation. JOINT SPACES: Normal. Chondrocalcinosis. SOFT TISSUES: Normal. IMPRESSION: No acute osseous abnormality right knee. Chondrocalcinosis. Critical Care Time Critical Care Time Critical Care Time: No Discharge Plan Discharge Clinical Impression: Chondrocalcinosis Patient Disposition: Home Condition: Stable Instructions: Swollen Knee Joint (ED) Additional Instructions: Today your x-ray did not show any acute findings. No fractures. It showed chronic findings of chondrocalcinosis- a condition where calcium crystals deposit in the cartilage of joints, often causing inflammation and pain.?In the knee, it's most commonly found in the menisci and can be associated with pain and swelling.? Wearing a compression knee brace may help. Following up with your orthopedic provider for drainage of your knee and injections is highly recommended. For worsening symptoms please go directly to the emergency room Patient Language: Kazakh Prescriptions: New indomethacin 50 mg capsule 50 mg PO TID Qty: 15 0RF Rx Instructions: administer with food or milk No Action clobetasol 0.05 % cream TOPICAL venlafaxine 150 mg capsule,extended release 24hr PO amlodipine 2.5 mg tablet metformin 1,000 mg tablet clobetasol 0.05 % solution TOPICAL lisinopril 40 mg tablet rosuvastatin 20 mg tablet Follow-up/Referrals: Иван,Rufino De La Paz MD [Primary Care Provider] - 2 Weeks (express care follow up ) Time of Disposition: 11:17
[2025-01-09 10:21] VITALS: BP 132/71; PULSE 82; RESP 18; TEMP 36.3; O2SAT 99
== END 2025-01-09 11:20 | disposition home or self-care (01) ==
PROVIDERS: Emergency Provider Nurse Practitioner; PCP Internal Medicine
DX: M11.261 Other chondrocalcinosis, right knee (principal); E78.00 Pure hypercholesterolemia, unspecified; I10 Essential (primary) hypertension
CPT/HCPCS: 73562; 99213; G0463

== ENCOUNTER 2025-05-15 09:19 | Outpatient (CLI) | payer MEDICARE, SELFPAY ==
--- NOTE | ~2025-05-15 | MR_ITS ---
EXAMINATION: MR brain/brain stem wo/w con DATE: 05/15/2025 10:30 INDICATION: Extremity numbness. Anesthesia of skin. TECHNIQUE: Magnetic resonance imaging (MRI) of the brain and brainstem was performed without and with 19 mL MultiHance intravenous contrast. COMPARISON: None. FINDINGS: There are scattered areas of nonspecific increased T2-weighted signal intensity in the cerebral white matter and christiane, which is within normal limits for the patient's age. There is a developmental venous anomaly in left frontal lobe. There is no intracranial hemorrhage, acute infarction, or abnormal intracranial mass lesion. The ventricles are normal in size. There are likely changes of left ocular lens replacement surgery. There is a left mastoid effusion. There is mild mucosal thickening in the paranasal sinuses. IMPRESSION: 1. Normal aging brain. Reviewed, dictated and finalized at location E. IMPRESSION: 1. Normal aging brain.
--- NOTE | ~2025-05-15 | MR_ITS ---
EXAMINATION: MR cervical spine wo con DATE: 05/15/2025 10:28 INDICATION: Extremity numbness. Anesthesia of skin. TECHNIQUE: Magnetic resonance imaging (MRI) of the cervical spine was performed without intravenous contrast. COMPARISON: Cervical spine MRI 08/08/2018 FINDINGS: Alignment is normal. Vertebral body heights are normal. There is developmental anterior and posterior fusion at C6-C7. There is mildly decreased disc height at C5-C6. The spinal cord signal intensity is normal. The following disc levels are specifically discussed: C2-C3: The disc is bulging. There is moderate right and severe left uncovertebral joint osteoarthritis. There is moderate right and severe left facet joint osteoarthritis. There is mild bilateral neural foraminal stenosis. There is mild central canal stenosis. C3-C4: The disc is bulging. There is severe bilateral uncovertebral joint osteoarthritis. There is severe bilateral facet joint osteoarthritis. There is severe bilateral neural foraminal stenosis. There is moderate central canal stenosis with ventral and dorsal indentation of the spinal cord. C4-C5: There is a central extrusion. There is severe bilateral uncovertebral joint osteoarthritis. There is moderate right and severe left facet joint osteoarthritis. There is moderate bilateral neural foraminal stenosis. There is mild central canal stenosis. C5-C6: There is a central extrusion. There is moderate bilateral uncovertebral joint osteoarthritis. There is severe bilateral facet joint osteoarthritis. There is mild bilateral neural foraminal stenosis. There is mild central canal stenosis. C6-C7: The disc does not extend beyond the endplate margin. There is no uncovertebral joint hypertrophy. There is no facet joint hypertrophy. There is no neural foraminal stenosis. There is no central canal stenosis. C7-T1: The disc is bulging. There is moderate bilateral uncovertebral joint osteoarthritis. There is severe bilateral facet joint osteoarthritis. There is mild bilateral neural foraminal stenosis. There is mild central canal stenosis. IMPRESSION: 1. Moderate cervical spondylosis, stable from 08/08/2018. Reviewed, dictated and finalized at location E.
--- OUTSIDE RECORDS SUMMARY | 2025-05-15 09:27 | XMS_ITS | Clinical Summary ---
Author Organization [facility] Research Address [address] [place] [place] [address] Care Team Providers Care Card Assembler Name Role Phone Rufino Oates MD Primary Care Provider [phone] Source Comments [facility],non-owned Affiliates and Associated Physician Practices is amultiple site organization consisting of ambulatory clinics and hospital sitesin [place], [place], [place] and [place]. This disclosure is being madepursuant to the Care Everywhere program and may not contain all information available regarding this patient. 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
--- OUTSIDE RECORDS SUMMARY | 2025-05-15 09:27 | XMS_ITS | Encounter Summary ---
Author Organization [facility] Address [address] [place] [address] Care Team Providers Care Business Continuity Specialist Name Role Phone Rufino Oates MD Primary Care Provider [phone] Encounter Details Date Type Department Care Team (Late st Contact Info) Description 07/19/2021 Lab Requisition 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 DermPath Lab Received: 07/19/2021 06:29 AM Pathologist: Karuna Noguera MD Specimen: Skin, right chest 12:25 PM [employer]CHOOL SUBSTITUTE TEACHER DERMATOPATHOLOGY LABORATORY Final Diagnosis Specimen A. SKIN, right chest: BASAL CELL CARCINOMA, NODULAR TYPE (C44.519) 12:25 PM [facility] DERMATOPATHOLOGY LABORATORY at [address] PRES[employer]OL SUBSTITUTE TEACHER Clinical History BCC vs SCC vs psoriasis. Path # [id number]. 12:25 PM [facility] DERMATOPATHOLOGY LABORATORY Gross Description Specimen A: Received is one formalin filled container labeled with the patient's name and designated right chest. The specimen consists of a shave biopsy measuring [id number]. Jar 0. 12:25 PM [facility] DERMATOPATHOLOGY LABORATORY Microscopic Description Specimen A. SKIN, right chest: Within the dermis there are aggregates of basaloid cells with a high nuclear to cytoplasmic ratio and peripheral palisading. 12:25 PM [facility] DERMATOPATHOLOGY LABORATORY Disclaimer An external and internal positive and negative controls are appropriate for the histochemical, immunohistochemical and immunofluorescence stain(s) in this case (if any), except where stated explicitly. The performance characteristics of the stain(s) cited in this report were developed and its performance characteristic determined by the Dermatopathology Laboratory at [facility], directed by Dr. Sujit Hill. These tests need not be, and therefore are not, approved by the [place] Food and Drug Administration. The tests are used for clinical purposes. Billing Codes Specimen Charges Stain Charges 10124 1 12:25 PM [facility] DERMATOPATHOLOGY LABORATORY Embedded Images 12:25 PM [facility] DERMATOPATHOLOGY LABORATORY Pathology/Cytolog y TISSUE SPECIMEN FROM SKIN / Unknown 07/18/2021 07/19/2021 6:29 AM [employer]OL SUBSTITUTE TEACHER us Ken Daniel MD LAB - PATHOLOGY/CYTOLOGY ORDER MINDY Final Result DERMATOPATHOLOGY LABORATORY [facility] - Department of Dermatology [facility] Medicine [address] [place] [address], [address] [phone] documented in this encounter Visit Diagnoses Not on filedocumented in this encounter Care Teams Business Continuity Specialist Relationship Specialty Start Date End Date Rufino Oates MD [address] [place] [address] [address] [place] [address] PCP - General 07/18/21 documented as of this encounter
--- OUTSIDE RECORDS SUMMARY | 2025-05-15 09:27 | XMS_ITS | Clinical Summary ---
Author Organization [facility] Address [address] [place] [address] Care Team Providers Care Lineworker Name Role Phone Unavailable Primary Care Provider [...] Virus (HCV) Screening 1954 TdaP Immunization 1954 Cologuard 1999 Colonoscopy 1999 Colorectal Cancer Screening 1999 Immunochemical Fecal Occult Blood 1999 Pneumococcal Immunization (5 0+ years) (1 of 1 - PCV) 2004 Zoster Immunization (1 of 2) 2004 SARS-COV-2 Immunization (2 - season) 2024 06/24/2021 Influenza Immunization (#1) 2025 Respiratory Syncytial Virus (RSV) Immunization (Adult) (1 - 1-dose 75+ series) 2029 Hepatitis B Immunization Aged Out No longer eligible based on patient's age to complete this topic Human Papillomavirus (HPV) Immunization Aged Out No longer eligible b ased on patient's age to complete this topic Meningococcal Immunization (ACWY) Aged Out No longer eligible based on patient's age to complete this topic Rotavirus Immunization Aged Out No lo nger eligible based on patient's age to complete this topic
--- OUTSIDE RECORDS SUMMARY | 2025-05-15 09:27 | XMS_ITS | Encounter Summary ---
Author Organization [facility] Address [address] [address] Care Team Providers Care Hair Colorist Name Role Phone Rufino Oates MD Primary Care Provider [phone] Encounter Details Date Type Department Care Team (Late st Contact Info) Description 09/07/2021 Lab Requisition [facility] DermPath Lab [address] [facility] [address] [facility] [place] [address] Ken Daniel MD [address] [facility] [place] [address] Social History Tobacco Use Types Packs/Day Years Used Date Smoking Tobacco: Never Assessed Sex and Gender Information Value Date Recorded Sex Assigned at Not on file Legal Sex Male 3:22 PM SENIOR PROJECT ENGINEER Gender Identity Not on file Sexual Orientation Not on file documented as of this encounter Plan of Treatment Not on file documented as of this encounter Procedures Procedure Name Priority Date/Time Associated Diagnosis Comments DERMATOPATHOLOGY Routine 09/07/2021 12:0 0 AM SENIOR PROJECT ENGINEER documented in this encounter Results * DERMATOPATHOLOGY (09/07/2021 12:00 AM SENIOR PROJECT ENGINEER) Case Report Dermatopathology Report Case: [id number] Authorizing Provider: Ken Daniel MD Collected: 09/07/2021 12:00 AM Ordering Location: [facility] DermPath Lab Received: 09/07/2021 04:18 PM Pathologist: Karuna Noguera MD Specimen: Skin, right chest 11:28 AM SENIOR PROJECT ENGINEER DERMATOPATHOLOGY LABORATORY Final Diagnosis Specimen A. SKIN, right chest: BASAL CELL CARCINOMA (C44.519) NOT PRESENT AT MARGIN DERMAL SCAR (L90.5) 2 11:28 AM [facility] DERMATOPATHOLOGY LABORATORY at [address] SENIOR PROJECT ENGINEER Clinical History BX Proven. BCCA NOD. Please Check Margins. Path# [id number] 2 11:28 AM [facility] DERMATOPATHOLOGY LABORATORY Gross Description Specimen A: Received is one formalin filled container labeled with the patient's name and designated right chest. The specimen consists of a non-oriented ellipse of skin measuring [id number]. The epidermal surface is unremarkable. The margin is inked green. The 12 o'clock and 6 o'clock tips are submitted in cassette 1. The remainder of the ellipse is serially sectioned and submitted in cassette 2-3. Jar 0. 2 11:28 AM [facility] DERMATOPATHOLOGY LABORATORY Microscopic Description Specimen A. [...] to the skin surface. 2 11:28 AM [facility] DERMATOPATHOLOGY LABORATORY Disclaimer An external and internal positive and negative controls are appropriate for the histochemical, immunohistochemical and immunofluorescence stain(s) in this case (if any), except where stated explicitly. The performance characteristics of the stain(s) cited in this report were developed and its performance characteristic determined by the Dermatopathology Laboratory at [facility], directed by Dr. Sujit Hill. These tests need not be, and therefore are not, approved by the [place] Food and Drug Administration. The tests are used for clinical purposes. Billing Codes Specimen Charges Stain Charges 92843 1 2 11:28 AM [facility] DERMATOPATHOLOGY LABORATORY Embedded Images 2 11:28 AM [facility] DERMATOPATHOLOGY LABORATORY Pathology/Cytolog y TISSUE SPECIMEN FROM SKIN / Unknown 09/07/2021 09/07/2021 4:18 PM SENIOR PROJECT ENGINEER us Ken Daniel MD LAB - PATHOLOGY/CYTOLOGY ORDER MINDY Final Result DERMATOPATHOLOGY LABORATORY [facility] - Department of Dermatology [facility] [address] [place] [address], [address] [phone] documented in this encounter Visit Diagnoses Not on filedocumented in this encounter Care Teams Hair Colorist Relationship Specialty Start Date End Date Rufino Oates MD [address] [place] [address] [address] [place] [address] PCP - General 07/18/21 documented as of this encounter
--- OUTSIDE RECORDS SUMMARY | 2025-05-15 09:27 | XMS_ITS | Clinical Summary ---
Author Organization [facility] Address [address] [facility] [place] [address] Care Team Providers Care Freight Coordinator Name Role Phone Rufino Oates MD Primary Care Provider [phone] Allergies No known active allergies Medications quinapril [...] on file Legal Sex Male 8:55 AM UPPER MARKER Gender Identity Not on file Sexual Orientation Not on file Last Filed Vital Signs Vital Sign Reading Time Taken Comments Blood Pressure 141/93 10/23/2018 2:59 PM UPPER MARKER Pulse 78 10/23/2018 2:59 PM UPPER MARKER Temperature 36.7 C (98.1 F) 10/23/2018 2:59 PM UPPER MARKER Respiratory Rate - - Oxygen Saturation 96% 10/23/2018 2:59 PM UPPER MARKER Inhaled Oxygen Concentration - - Weight 85.3 kg (188 lb 1.6 oz) 10/23/2018 2:59 P M UPPER MARKER Height 175.3 cm (5' 9) 10/23/2018 2:59 PM UPPER MARKER Body Mass Index 27.78 10/23/2018 2:59 PM UPPER MARKER Plan of Treatment Health Maintenance Due Date Last Done Comments DTAP/TDAP/TD VACCINES (1 - Tdap) 1973 COLORECTAL SCREENING 1999 Colorectal Cancer Screening 1999 FIT-DNA Q 3 years 1999 FIT/FOBT Q 1 year 1999 Flex Sig/CT Colonography Q 5 years 1999 PNEUMOCOCCAL VACCINE 50+ YEARS (1 of 1 - PCV) 03/08/20 04 ZOSTER VACCINE (1 of 2) 2004 INFLUENZA VACCINE (#1) 2025 RSV VACCINE (60+ or ) (1 - 1-dose 75+ series) 2029 Insurance Evri/TRUE BLUE PPO Care Teams Freight Coordinator Relationship Specialty Start Date End Date Rufino Oates MD [address] [place] [address] [address] [place] [address] PCP - General Internal Medicine 10/16/18
== END 2025-05-15 09:20 | disposition home or self-care (01) ==
PROVIDERS: PCP Internal Medicine; Visit Provider Internal Medicine
DX: R20.0 Anesthesia of skin (principal)
CPT/HCPCS: 70553; 72141; A9577